=== PATIENT | male | born 1930 | race Caucasian/White ===

== ENCOUNTER 2017-09-03 18:48 | Inpatient (IN) ==
--- NOTE | 2017-09-03 19:53 | Emergency Department Note ---
Disposition Clinical Impression: Acute kidney injury, Elevated troponin Congestive heart failure Qualifiers: Congestive heart failure type: unspecified congestive heart failure type Congestive heart failure chronicity: unspecified congestive heart failure chronicity Qualified Code(s): I50.9 - Heart failure, unspecified Disposition: Admitted As Inpatient Condition: Fair Referrals: Julio Ma MD [Primary Care Provider] - Forms: ED Satisfaction Letter Time of Disposition: 21:14 General Adult HPI - General Chief complaint: ED Extremity Problem,Nontraumatic Stated complaint: BLE Edema Time Seen by Provider: 09/03/17 19:25 Source: patient, EMS Mode of arrival: ambulatory Limitations: no limitations Nursing Notes Reviewed: Yes Vital Signs Reviewed: Yes - History of Present Illness HPI Narrative: 86-year-old male with a history of congestive heart failure presents for evaluation of worsening dyspnea. Symptom onset spent over the past 2 days. Patient does have a history of congestive heart failure. Patient notes increasing weight gain over the past 2 days. States he has gained approximate 7 pounds. Noted worsening bilateral lower extremity edema. Patient also notes worsening dyspnea with exertion. Patient's on home oxygen of 2 L. Patient also uses CPAP at home. Patient's on Lasix 120 mg daily as well as Coreg. Patient denies any changes to those medications. Patient denies chest pain. Patient denies nausea or vomiting. No abdominal pain. Patient denies fevers or cough. Patient's been resting in a recliner. Patient cannot tolerate lying flat. Patient states that he has not drank excessively for the past few days. Patient does note that he has had an outpatient thoracentesis performed a couple weeks ago. Pain Scale: 0 - Related Data Home Medications Medication Instructions Recorded Confirmed Allopurinol [Zyloprim 300 MG] 300 mg PO DAILY 01/21/16 09/03/17 Aspirin 81 mg PO DAILY 01/21/16 09/03/17 Furosemide [Lasix] 40 mg PO TID 01/21/16 09/03/17 Insulin Glargine [Lantus] 0 - 10 units SQ HS 01/21/16 09/03/17 Warfarin [Coumadin] 5 mg PO MOWEFR 01/21/16 09/03/17 cloNIDine HCl [CloNIDine HCl] 0.1 mg PO BID PRN 01/21/16 09/03/17 Carvedilol [Coreg] 6.25 mg PO BID 08/19/17 09/03/17 Simvastatin [Zocor] 20 mg PO HS 08/19/17 09/03/17 Insulin LISPRO [Humalog Kwikpen 0 unit SQ TIDAC PRN 09/03/17 09/03/17 U-100] Lisinopril [Zestril] 40 mg PO DAILY 09/03/17 09/03/17 Oxygen 2.5 l NS AD 09/03/17 09/03/17 Warfarin [Coumadin] 2.5 mg PO SUTUTHSA 09/03/17 09/03/17 Allergies Allergy/AdvReac Type Severity Reaction Status Date / Time metoprolol [From Toprol XL] Allergy Difficulty Verified 08/19/17 12:50 Breathing morphine Allergy Difficulty Verified 08/19/17 12:50 Breathing All systems ED: reviewed and negative except as stated. Constitutional: Reports: as per HPI. Denies: fever Eyes: Reports: as per HPI ENT ED: Reports: as per HPI Cardiovascular: Reports: as per HPI. Denies: chest pain Respiratory: Reports: as per HPI, dyspnea. Denies: cough Gastrointestinal: Reports: as per HPI. Denies: nausea, vomiting Genitourinary: Reports: as per HPI Musculoskeletal: Reports: as per HPI Integumentary: Reports: as per HPI Neurological: Reports: as per HPI Psychiatric: Reports: as per HPI Endocrine: Reports: as per HPI Hematological/Lymphatic: Reports: as per HPI Past Medical History - Past Medical History Medical history: Reports: arthritis, atrial fibrillation, CHF, diabetes, hyperlipidemia, hypertension, kidney stones, renal disease Surgical history: Reports: orthopedic, other Psychiatric history: Reports: no psych history - Social History Smoking Status: Never smoker Smokeless Tobacco Status: No Alcohol use: Reports: none Drug use: Reports: none Physical Exam - General Limitations: no limitations General appearance: alert, in no apparent distress - Head Head exam: atraumatic, normocephalic, normal inspection - Eye Eye exam: Present: normal appearance, EOMI - ENT ENT exam: normal exam, mucous membranes moist - Neck Neck exam: Present: normal inspection - Respiratory Respiratory exam: Present: other (Diminished in the right lower lung field). Absent: respiratory distress - Cardiovascular Cardiovascular exam: Present: regular rate, irregular rhythm - Abdominal Exam Abdominal exam: Present: soft, Non-Tender, distention. Absent: tenderness, guarding, rebound - Extremities Exam Extremities exam: Present: normal inspection, pedal edema (2-3+ bilateral pitting edema with chronic vascular skin changes with some weeping and dressing applied.) - Back Exam Back exam: Present: normal inspection - Neurological Exam Neurological exam: Present: alert, oriented X3 - Skin Skin exam: Present: warm, dry, intact, normal color Course Course Narrative: Patient seen and examined upon arrival. Patient complaining of bilateral lower extremity edema. Patient had an echo performed over a year ago with EF of 50-55 %. Patient's complains of worsening dyspnea. Patient will get baseline labs, EKG, chest x-ray. Patient will also receive IV Lasix for diuresis. Patient will likely require admission for gradual diuresis and echo for heart function. - Reevaluation(s) Reevaluation #1: Patient is resting comfortably. No acute distress. Plan of care discussed with the patient. Patients responding to Lasix. Time: 21:14 Vital Signs Temperature 97.3 F L 09/03/17 18:48 Pulse Rate 85 09/03/17 18:48 Respiratory Rate 20 09/03/17 18:48 Blood Pressure 125/72 09/03/17 18:48 O2 Sat by Pulse Oximetry 93 09/03/17 18:48 Temperature 97.3 F L 09/03/17 18:48 Pulse Rate 94 09/03/17 20:35 Respiratory Rate 16 09/03/17 20:35 Blood Pressure 142/85 09/03/17 20:35 O2 Sat by Pulse Oximetry 97 09/03/17 20:35 Oxygen Delivery Oxygen Delivery Nasal Cannula Medical Decision Making - [facility] Narrative Medical decision making narrative: Patient presents with signs and symptoms of congestive heart failure. Patient did have an echo obtained over a year ago had an EF of 50 or 55%. Patient notes worsening dyspnea on exertion. Patient's orthopneic. Patient's on high- dose Lasix at home. Patient was given IV Lasix for diuresis in the emergency department. Patient complaint is his bilateral lower extremity edema. Does not appear to be cellulitis. Does appear to be weeping. Patient's labs reviewed show an elevated troponin. Patient has no STEMI EKG changes. Patient was given aspirin. Patient is currently denying chest pain. Patient's chest x- ray shows pulmonary edema. Patient has worsening kidney disease. Patient would benefit from inpatient admission and gradual diuresis given his kidney function worsening as well as elevated troponin. Patient will be admitted to hospital service for further evaluation monitoring. - Medical Records Medical records reviewed: Yes I reviewed the patient's medical records. - Lab Data Lab results reviewed: Yes I reviewed the patient's lab results. Result diagrams: 09/03/17 20:08 09/03/17 20:08 Lab Results 09/03/17 09/03/17 09/03/17 Range/Units 20:08 20:08 20:08 WBC 7.7 (4.3-11.1) K/mcL RBC 3.21 L (4.19-5.50) M/mcL Hgb 11.1 L (12.9-16.9) g/dL Hct 34.6 L (37.5-50.1) % MCV 107.8 H (83.0-100.0) fL MCH 34.6 H (28.0-33.3) pg MCHC 32.1 (31.6-35.5) g/dL RDW 17.6 H (11.5-14.5) % Plt Count 162 (140-400) K/mcL MPV 11.1 (9.4-12.4) fL Immature Gran % 0.7 (0-4) % Seg Neutrophils % 76.9 % Lymphocytes % 8.6 % Monocytes % 12.5 % Eosinophils % 0.9 % Basophils % 0.4 % Neutrophils # 5.9 (1.6-8.9) K/mcL Lymphocytes # 0.7 (0.6-4.6) K/mcL Monocytes # 1.0 (0.0-1.3) K/mcL Eosinophils # 0.1 (0.0-0.6) K/mcL Basophils # 0.0 (0.0-0.2) K/mcL PT (9.4-12.1) Seconds INR Sodium 134 L (136-145) mEq/L Potassium 4.4 (3.5-5.1) mEq/L Chloride 95 L (98-107) mEq/L Carbon Dioxide 31 H (23-29) mEq/L BUN 103 H (8-23) mg/dL Creatinine 3.73 H (0.70-1.30) mg/dL Est GFR ( Amer) 19 L (> 60) Est GFR (Non-Af Amer) 16 L (> 60) BUN/Creatinine Ratio 28 H (6-26) Glucose 281 H (70-105) mg/dL Calculated Osmolality 320 H (280-300) Calcium 9.7 (8.6-10.3) mg/dL Direct Bilirubin 0.3 H (0.0-0.2) mg/dL AST 27 (13-39) Units/L ALT 17 (7-52) Units/L Alkaline Phosphatase 289 H (34-104) Units/L Troponin I (< 0.04) ng/mL B-Natriuretic Peptide 531 H (Less than 100) pg/mL Serum Total Protein 6.3 L (6.4-8.9) g/dL Albumin 3.1 L (3.5-5.7) g/dL Globulin 3.2 (2.4-3.5) g/dL Albumin/Globulin Ratio 1.0 L (1.1-2.2) 09/03/17 09/03/17 Range/Units 20:08 20:08 WBC (4.3-11.1) K/mcL RBC (4.19-5.50) M/mcL Hgb (12.9-16.9) g/dL Hct (37.5-50.1) % MCV (83.0-100.0) fL MCH (28.0-33.3) pg MCHC (31.6-35.5) g/dL RDW (11.5-14.5) % Plt Count (140-400) K/mcL MPV (9.4-12.4) fL Immature Gran % (0-4) % Seg Neutrophils % % Lymphocytes % % Monocytes % % Eosinophils % % Basophils % % Neutrophils # (1.6-8.9) K/mcL Lymphocytes # (0.6-4.6) K/mcL Monocytes # (0.0-1.3) K/mcL Eosinophils # (0.0-0.6) K/mcL Basophils # (0.0-0.2) K/mcL PT 34.1 H (9.4-12.1) Seconds INR 3.1 Sodium (136-145) mEq/L Potassium (3.5-5.1) mEq/L Chloride (98-107) mEq/L Carbon Dioxide (23-29) mEq/L BUN (8-23) mg/dL Creatinine (0.70-1.30) mg/dL Est GFR ( Amer) (> 60) Est GFR (Non-Af Amer) (> 60) BUN/Creatinine Ratio (6-26) Glucose (70-105) mg/dL Calculated Osmolality (280-300) Calcium (8.6-10.3) mg/dL Direct Bilirubin (0.0-0.2) mg/dL AST (13-39) Units/L ALT (7-52) Units/L Alkaline Phosphatase (34-104) Units/L Troponin I 0.04 H* (< 0.04) ng/mL B-Natriuretic Peptide (Less than 100) pg/mL Serum Total Protein (6.4-8.9) g/dL Albumin (3.5-5.7) g/dL Globulin (2.4-3.5) g/dL Albumin/Globulin Ratio (1.1-2.2) - Radiology Data Radiology results reviewed: Yes I reviewed the patient's radiology results. Chest X-Ray 09/03/17 19:30 IMPRESSION: Findings most compatible with pulmonary edema. Correlate with any clinical evidence of superimposed pneumonia. D/ / Jonatan Vega MD / Jonatan Vega MD Interpreting Provider: Jonatan Vega MD - EKG Data EKG #1 EKG attestation: Yes I reviewed and interpreted this EKG. Rate: normal Rhythm: A.Fib [place]/QRS: left axis deviation, RBBB Q waves: II, III, aVF T wave inversions noted in: v1, v2, v3, v4 Interpretation: no acute changes, unchanged when compared to prior tracing (date ) (2015) Gely - Gely Situation: Demographics Background: Presenting Complaint Assessment: Vital Signs, Course and respsone to treatment, Patient/Family Expectation, Pertinant Lab Results Recommendation: Barrier(s) to disposition, Recommendation based on pending studies, treatments, or consults Gely Report Given to: Dr. Miguel Hong Repor Time: 21:07 Attestation Statement - Attestation Attestation: I, Keagan Jackson MD, personally evaluated this patient and discussed their management with the resident physician. I reviewed the resident's note and agree with the documented findings, medical decision making, and plan of care. 86-year-old male presents to the emergency department with a complaint of increased swelling of the lower extremities associated with some blisters and weeping over the past several days. He also has had some increased shortness of breath primarily with exertion. No significant chest pain. No cough or fever. On examination patient is a well-developed well-nourished elderly male in no acute distress. He is alert and oriented 3. There is no cyanosis or diaphoresis. Sounds are decreased bilaterally with some bibasilar rales. No wheezes noted. Heart is irregularly irregular with a normal rate. Abdomen soft and nontender with normal bowel sounds. 1+ pedal edema bilaterally. Chest x-ray shows pulmonary edema. Labs reviewed. Troponin 0.04. Creatinine 3.71. The hospitalist, Dr. Gregg, was consulted and accepted admission of the patient.
[2017-09-03] MEDS ORDERED: Furosemide 40 MG/4 ML VIAL IVP ONE (20:00)
[2017-09-03 20:18] LABS: Basophils % 0.4 %; Eosinophils # 0.1 K/mcL (0.0-0.6); Eosinophils % 0.9 %; Hematocrit 34.6 % (37.5-50.1); Hemoglobin 11.1 g/dL (12.9-16.9); Immature Granulocytes % 0.7 % (0-4); Lymphocytes # 0.7 K/mcL (0.6-4.6); Lymphocytes % 8.6 %; Mean Corpuscular HGB Conc 32.1 g/dL (31.6-35.5); Mean Corpuscular Hemoglobin 34.6 pg (28.0-33.3); Mean Corpuscular Volume 107.8 fL (83.0-100.0); Mean Platelet Volume 11.1 fL (9.4-12.4); Monocytes % 12.5 %; Neutrophils # 5.9 K/mcL (1.6-8.9); Platelet Count 162 K/mcL (140-400); Red Blood Count 3.21 M/mcL (4.19-5.50); Red Cell Distribution Width 17.6 % (11.5-14.5); Segmented Neutrophils % 76.9 %
[2017-09-03 20:29] LABS: INR 3.1; Prothrombin Time 34.1 Seconds (9.4-12.1)
[2017-09-03 20:34] LABS: Calcium 9.7 mg/dL (8.6-10.3); Potassium 4.4 mEq/L (3.5-5.1)
[2017-09-03] MEDS ORDERED: Aspirin 81 MG TAB.CHEW PO ONE (20:42)
[2017-09-03 20:53] LABS: Albumin 3.1 g/dL (3.5-5.7); Bilirubin,Direct 0.3 mg/dL (0.0-0.2)
[2017-09-03 20:59] LABS: Globulin 3.2 g/dL (2.4-3.5); Total Protein 6.3 g/dL (6.4-8.9)
[2017-09-03 22:22] LABS: Bilirubin,Indirect 0.4 mg/dL (0.0-1.2); Bilirubin,Total 0.7 mg/dL (0.3-1.0)
[2017-09-04] MEDS ORDERED: Naloxone 0.4 MG/ML INJ IVP PRN (01:32)
[2017-09-04] MEDS ORDERED: *HR* Dextrose 50 % in Water (Syg) 50 ML SYRINGE IVP PRN (01:32)
[2017-09-04] MEDS ORDERED: Ondansetron 4 MG/2 ML VIAL IVP PRN (01:32)
[2017-09-04] MEDS ORDERED: Dextrose Gel 15 GM/37.5 ML TUBE PO PRN ×2 (01:32)
[2017-09-04] MEDS ORDERED: D5% in Water 1,000 ML IVC PRN (01:32)
[2017-09-04] MEDS ORDERED: Acetaminophen 325 MG TABLET PO PRN (01:32)
[2017-09-04] MEDS ORDERED: cloNIDine HCl 0.1 MG TABLET PO PRN (01:41)
--- NOTE | 2017-09-04 01:46 | Internal Med History&Physical ---
Date of Encounter: 09/04/17 Time of Encounter: 01:44 Assessment and Plan (1) Diastolic heart failure Current visit: No Status: Acute Acute on chronic hypoxic respiratory failure secondary to bilateral pleural effusions mostly on the right due to diastolic acute CHF exacerbation with failed outpatient therapy Continue oxygen therapy Strict I's and O's and daily weight, switch to Bumex 1 mg 3 times a day IV Check echocardiogram Omeprazole for GI prophylaxis and Coumadin for DVT prophylaxis. The patient will be admitted as inpatient, expected to stay more than 2 midnights. Full code. Time spent on this admission 40 minutes. High risk due to acute respiratory failure Qualifiers: Heart failure chronicity: chronic Qualified Code(s): I50.32 - Chronic diastolic (congestive) heart failure (2) Recurrent pleural effusion on right Current visit: No Status: Acute Consider pulmonary consult to repeat thoracenteses if needed (3) Ascending aortic aneurysm Current visit: No Status: Acute (4) Acute kidney injury Current visit: Yes Status: Acute Acute on chronic renal failure History of chronic kidney disease stage IV Consider nephrology consult, the patient follows up with Dr. Navarrete (5) Elevated troponin Current visit: Yes Status: Acute Likely secondary to demand ischemia (6) Afib Current visit: No Status: Acute Continue Coumadin, hold Coumadin due to supratherapeutic INR Qualifiers: Atrial fibrillation type: chronic Qualified Code(s): I48.2 - Chronic atrial fibrillation (7) Diabetes Current visit: No Status: Acute Continue insulin Qualifiers: Diabetes mellitus type: type 2 Diabetes mellitus complication status: with kidney complications Diabetes mellitus complication detail: with chronic kidney disease Diabetes mellitus jail insulin use: with jail use Chronic kidney disease stage: stage 4 (severe) Qualified Code(s): E11.22 - Type 2 diabetes mellitus with diabetic chronic kidney disease Internal Medicine - H&P: HPI Chief complaint: Shortness of breath Admitted From: Emergency Dept History of present illness: Mr. Marin is a 86 year old male with a past medical history of diastolic CHF and a right pleural effusion that required thoracenteses back in August, interrelation on Coumadin, diabetes type 2 insulin-dependent, chronic kidney disease stage IV, chronic respiratory failure using 2 L at home. The patient came complaining of severe shortness of breath and lower extremity edema, he has gained 7 pounds despite being on Lasix 40 mg 3 times a day at home. Chest x -ray shows pulmonary edema and possible bilateral opacities more on the right than the left, no symptoms of pneumonia. Troponin 0.04 BNP is 531 glucose 281 his creatinine was 2.81 and has increased to 3.73. INR is 3.1 heart rate 94 blood pressure 142/85. The patient received a dose of Lasix IV at the emergency room. 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 Brand cyst, nephrolithiasis, hypertension) Psychiatric history: no psych history - Past Surgical History Surgical History: orthopedic, other, other (Thoracentesis in August 192016 removing 1250 mL from the right lung, lithotripsy, carpal tunnel syndrome surgery, TURP, cataracts, Mohs surgery due to BCC) - Social History Smoking Status: Never smoker Smokeless Tobacco Status: No Alcohol use: none Drug use: none - Family History Daughter Adopted: [place]: ashia Living Status: Still Living Father Name: Peterson Family Member Ethnicity: Non- Living Status: Age at : 86 Cause of : CHF Hx Family Cardiac Disorders: Yes - Additional Family History Additional family history: Brother with diabetes, daughter with breast cancer, father with CHF and mother with heart disease Internal Medicine - H&P: Meds Allopurinol [Zyloprim 300 MG] 300 mg PO DAILY 01/21/16 [History] Aspirin 81 mg PO DAILY 01/21/16 [History] Furosemide [Lasix] 40 mg PO TID 01/21/16 [History] Insulin Glargine [Lantus] 0 - 10 units SQ HS 01/21/16 [History] Warfarin [Coumadin] 5 mg PO MOWEFR 01/21/16 [History] cloNIDine HCl [CloNIDine HCl] 0.1 mg PO BID PRN 01/21/16 [History] Carvedilol [Coreg] 6.25 mg PO BID 08/19/17 [History] Simvastatin [Zocor] 20 mg PO HS 08/19/17 [History] Insulin LISPRO [Humalog Kwikpen U-100] 0 unit SQ TIDAC PRN 09/03/17 [History] Lisinopril [Zestril] 40 mg PO DAILY 09/03/17 [History] Oxygen 2.5 l NS AD 09/03/17 [History] Warfarin [Coumadin] 2.5 mg PO SUTUTHSA 09/03/17 [History] 3 Allergy/AdvReac Type Severity Reaction Status Date / Time metoprolol [From Toprol XL] Allergy Difficulty Verified 08/19/17 12:50 Breathing morphine Allergy Difficulty Verified 08/19/17 12:50 Breathing All Systems PM: A 10-system review of systems was performed and is negative for pertinent findings except as documented above in the HPI. Review of systems: Short of breath, denies any chest pain, other systems out of the 10 revealed were negative - Constitutional Vitals: Temp Pulse Resp BP Pulse Ox 97.8 F 89 16 116/76 98 09/03/17 22:46 09/03/17 22:46 09/03/17 22:46 09/03/17 22:46 09/03/17 22:46 General appearance: Present: A&O X 3 - Head Head exam: Present: atraumatic, normocephalic - Eye Eye exam: Present: PERRL, conjuntiva pink, sclera anicteric Pupils: Present: PERRL - Neck Neck exam general surgery: Present: supple, trachea midline. Absent: lymphadenopathy - Respiratory Respiratory exam: Present: CTAB. Absent: accessory muscle use, rales, rhonchi, wheezes Additional comments: Bilateral blunted breath sounds mostly on the right with mild diffuse crackles - Cardiovascular Cardiovascular exam: Present: RRR, +S1, +S2. Absent: diastolic murmur, gallop, rubs, systolic murmur - GI/Abdominal GI/Abdominal exam: Present: normal bowel sounds, soft, no peritoneal signs. Absent: distended, tenderness - Extremities Exam Extremities exam: Present: warm, radial pulses palpable and symmetrical. Absent : calf tenderness, cyanotic, pedal edema - Neurological Exam Neurological exam: Present: CN II-XII intact, oriented X3, no focal deficits. Absent: pronater drift, facial droop, speech deficit Additional comments: Severe bilateral 2+ pitting edema in both lower extremities: Chronic changes - Skin Skin exam: Present: dry, intact Internal Med - H&P Results - Labs CBC & Chem 7: 09/03/17 20:08 09/03/17 20:08
[2017-09-04] MEDS: Bumetanide 1 MG/4 ML VIAL IVP SCH ×2 (03:48→09:25)
[2017-09-04 05:18] LABS: INR 3.3; Prothrombin Time 36.4 Seconds (9.4-12.1)
[2017-09-04 05:29] LABS: Calcium 9.5 mg/dL (8.6-10.3); Potassium 4.3 mEq/L (3.5-5.1)
[2017-09-04] MEDS: Aspirin 81 MG TAB.CHEW PO SCH (09:24)
[2017-09-04] MEDS: Insulin LISPRO 300 UNITS/3 ML VIAL SQ SCH ×3 (09:24→18:57)
--- NOTE | 2017-09-04 09:50 | Internal Med Progress Note ---
<Girish Rainey - Last Filed: 09/04/17 13:12> Date of Encounter: 09/04/17 Time of Encounter: 09:47 - Assessment and plan (1) Diastolic heart failure Current Visit: Yes Status: Acute Assessment and plan: Acute diastolic CHF exacerbation Chest x-ray shows findings of pulmonary edema. With right pleural effusion. Bilateral lower extremity edema 3+. Lung exam: Bilateral basal crackles. BNP 531 Reports following a strict low sodium, fluid restricted diet. In the setting of a MARTIN on CKD Patient is on Lasix 40 mg by mouth 3 times a day at home. echo: 01/22/16: Left ventricular ejection fraction 55% with mild concentric left ventricular hypertrophy, severely dilated left atrium, moderately dilated right atrium, RVSP 68. plan: Reorder echocardiogram. Patient on Bumex 1 mg IV TID. Consult to nephrology and cardiology. Qualifiers: Heart failure chronicity: acute on chronic Qualified Code(s): I50.33 - Acute on chronic diastolic (congestive) heart failure (2) Black stool Current Visit: Yes Status: Acute Assessment and plan: reports black stool in past 2-3 days Current hemoglobin is 11.1 Baseline hemoglobin 13-14 Repeat CBC. Order fecal Hemoccult. Patient is supratherapeutic on his Coumadin with INR 3.3 Hemodynamically stable plan: Trend H&H. Consult GI if patient fecal hemoccult +. (3) [id number] kidney injury Current Visit: Yes Status: Acute Assessment and plan: MARTIN on CKD stage IV Scr trending down. 3.7<3.6 Etiology unclear. We will order urinalysis, uric acid, urine urea, retroperitoneal ultrasound. Patient follows [facility]. Nephrology consult placed. diabetic, fluid restricted diet, low salt diet. Qualifiers: Acute renal failure type: unspecified Chronic kidney disease stage: stage 4 (severe) Qualified Code(s): N17.9 - Acute kidney failure, unspecified; N18.4 - Chronic kidney disease, stage 4 (severe); N18.4 - Chronic kidney disease , stage 4 (severe); N18.4 - Chronic kidney disease, stage 4 (severe); N18.4 - Chronic kidney disease, stage 4 (severe) (4) Afib Current Visit: Yes Status: Acute Assessment and plan: Rate controlled. Continue metoprolol. INR supratherapeutic. Warfarin on hold. Qualifiers: Atrial fibrillation type: chronic Qualified Code(s): I48.2 - Chronic atrial fibrillation (5) OSWALDO on CPAP Current Visit: Yes Status: Acute Assessment and plan: We will order BiPAP overnight as patient has CHF exacerbation and will improve his symptoms. (6) Recurrent pleural effusion on right Current Visit: Yes Status: Acute Assessment and plan: Patient has had repeated right pleural effusions in the past. He has had 3 thoracentesis in the past. Last thoracentesis was 08/19/17. Previous fluid analysis showed a transudative etiology. Patient does have pulmonary hypertension according to his previous echocardiogram. That combined with CHF explain recurrent pleural effusion. Last thoracentesis was 08/19/2017. Chest x-ray shows reaccumulation of right pleural effusion. (7) Ascending aortic aneurysm Current Visit: Yes Status: Acute Assessment and plan: previous CT in 2015 showed size to be 41mm patient getting repeat echo. may need repeat imaging to asses size. - Subjective Interval history: Patient is very dyspneic this morning. He has conversational dyspnea. He denies chest pain. Patient gets short of breath from transferring to commode. 2 weeks ago he states he was able to ambulate with minimal difficulty or shortness of breath. in the last week he has gained 10 pounds of fluid. Also reports she has had multiple boils on his lower extremities that have been weeping. Denies chest pain, palpitations, nausea, vomiting, diarrhea. Reports lower extremity swelling. Reports black tarry stools for the past 2-3 days. Patient is on warfarin for atrial fibrillation. - Constitutional Vitals: Temp Pulse Resp BP Pulse Ox 97.9 F 93 17 129/64 91 09/04/17 09:02 09/04/17 09:02 09/04/17 09:02 09/04/17 09:02 09/04/17 09:02 General appearance: Present: A&O X 3 - Other Additional findings: General: mild distress HEENT: Head atraumatic, normocephalic, EOMI, PERRL, neck nontender to palpation , absent lymphadenopathy, Moist Mucous Membranes, Heart: Irregularly irregular Lungs: Menest, bilateral basilar crackles. Abdomen: Soft nontender, nondistended positive bowel sounds Skin: Multiple open boils on bilateral lower extremities. Large open boil on the left lower extremity measuring 4 cm x 4 cm with a serosanguineous discharge. Absent erythema, warmth, pus like discharge. Extremities: Bilateral 2+ pedal edema. Neuro: Alert and oriented 3 Vascular: Pedal and radial pulses 2 out of 4 Internal Medicine: Result - Labs CBC & Chem 7: 09/04/17 04:35 09/04/17 04:35 Labs: BMP 09/04/17 04:35 Sodium 135 L Potassium 4.3 Chloride 96 L Carbon Dioxide 30 H BUN 102 H Creatinine 3.60 H Glucose 223 H Calcium 9.5 Cardiac Enzymes 09/04/17 Range/Units 04:35 Troponin I 0.05 H* (< 0.04) ng/mL - ABG Interpretation ABG results: PT/INR, D-dimer PT 36.4 Seconds (9.4-12.1) H 09/04/17 04:35 Consult Discharge Plan - Plan Referrals: Julio Ma MD [Primary Care Provider] - (web request sent on 09/04/17) <Katherine Dobbins - Last Filed: 09/04/17 14:57> Date of Encounter: 09/04/17 - Constitutional Vitals: Temp Pulse Resp BP Pulse Ox 98.4 F 82 16 113/71 93 09/04/17 12:12 09/04/17 12:12 09/04/17 12:12 09/04/17 12:12 09/04/17 12:12 Internal Medicine: Result - Labs CBC & Chem 7: 09/04/17 04:35 09/04/17 04:35 Labs: Short CBC 09/04/17 Range/Units 04:35 WBC 7.8 (4.3-11.1) K/mcL Hgb 10.8 L (12.9-16.9) g/dL Hct 34.5 L (37.5-50.1) % Plt Count 161 (140-400) K/mcL Neutrophils # 5.8 (1.6-8.9) K/mcL BMP 09/04/17 04:35 Sodium 135 L Potassium 4.3 Chloride 96 L Carbon Dioxide 30 H BUN 102 H Creatinine 3.60 H Glucose 223 H Calcium 9.5 Cardiac Enzymes 09/04/17 Range/Units 04:35 Troponin I 0.05 H* (< 0.04) ng/mL - ABG Interpretation ABG results: PT/INR, D-dimer PT 36.4 Seconds (9.4-12.1) H 09/04/17 04:35 - Attending Attestation I saw and evaluated the patient at bedside. I have reviewed the progress note obtained and documented by the resident and personally participated in the murry components. I have discussed the case and management of the patient's care. I agree with the findings and plan of care.The following comments revise or confirm relevant murry components of their note. This is an 86-year-old male with a past medical history of diastolic heart failure who presents with- acute on chronic renal failure-with oliguria potential upper G.I. bleed as manifested by dark stools-to obtain occult blood fluid overload and acute exacerbation of chronic diastolic heart failure patient also had 3 days of significant Rigors prior to admission and subjective fevers-will monitor for infectious source. Does not appear to be septic. Obtain cardiology and nephrology consultations check renal ultrasound and urine with microscopy.
[2017-09-04 10:14] LABS: Basophils # 0.1 K/mcL (0.0-0.2); Basophils % 0.8 %; Eosinophils # 0.1 K/mcL (0.0-0.6); Eosinophils % 1.5 %; Hematocrit 34.5 % (37.5-50.1); Hemoglobin 10.8 g/dL (12.9-16.9); Immature Granulocytes % 0.8 % (0-4); Lymphocytes # 0.7 K/mcL (0.6-4.6); Lymphocytes % 8.6 %; Mean Corpuscular HGB Conc 31.3 g/dL (31.6-35.5); Mean Corpuscular Hemoglobin 34.2 pg (28.0-33.3); Mean Corpuscular Volume 109.2 fL (83.0-100.0); Mean Platelet Volume 11.6 fL (9.4-12.4); Monocytes # 1.1 K/mcL (0.0-1.3); Monocytes % 13.7 %; Neutrophils # 5.8 K/mcL (1.6-8.9); Nucleated Red Blood Cells 0.3 /100 WBC (0); Platelet Count 161 K/mcL (140-400); Red Blood Count 3.16 M/mcL (4.19-5.50); Red Cell Distribution Width 17.6 % (11.5-14.5); Segmented Neutrophils % 74.6 %
--- NOTE | 2017-09-04 15:11 | Cardiology Consult Note ---
Date of Encounter: 09/04/17 Time of Encounter: 14:00 Assessment and Plan (1) Congestive heart failure Current Visit: Yes Status: Acute Per cardiology: -Acute on chronic diastolic CHF. -Volume overloaded on exam. -Reports weight gain of 7 pounds at home. -On bumex 1mg IV TID. -Chest x-ray with pulmonary edema noted. -BNP 531. -Of note, MARTIN on CKD with creatinine 3.73 on admission. Poor urine output. Nephrology consulted. -Continue diuresis. Appreciate nephrology recommendations. -Strict i/os, daily weights, fluid restriction. Qualifiers: Congestive heart failure type: diastolic Congestive heart failure chronicity: acute on chronic Qualified Code(s): I50.33 - Acute on chronic diastolic (congestive) heart failure (2) Acute kidney injury Current Visit: Yes Status: Acute Per cardiology: -MARTIN on CKD. -Creatinine on admission 3.73, today 3.6. -Nephrology consulted. -Appreciate nephrology recommendations. (3) Elevated troponin Current Visit: Yes Status: Acute Per cardiology: -Troponins 0.04, 0.05. Troponins flat and adynamic in the setting of CHF, MARTIN. -Denies chest pain. -ECG with no acute ischemic changes. -TTE pending. -12/2015 TTE with LVEF 55%, no segmental wall motion abnormalities. -2012 stress negative. -On asa, statin, beta jenni. INR supratherapeutic on admisison. -Do not suspect NSTEMI, suspect demand ischemia related to above. NO cardiac rehab warranted at this time. -Further recommednations pending TTE. (4) Black stool Current Visit: Yes Status: Acute Per cardiology: -Patient reported black stool. -Management per primary service. (5) Afib Current Visit: Yes Status: Chronic Per cardiology: -Known atrial fibrillation. -Rate controlled on beta jenni. -ON coumadin. Of note, patient did report black stool. Stool OB pending. -Continue to monitor telemetry. Qualifiers: Atrial fibrillation type: chronic Qualified Code(s): I48.2 - Chronic atrial fibrillation Discussion w patient/family: The assessment and plan as outlined above was discussed with the patient and/or family members who expressed understanding and agreement. All questions were answered. Thank you for involving us in the care of your patient. Please call with any questions. Discussed and reviewed with . History of Present Illness Consult date: 09/04/17 Requesting physician: Girish Rainey Consult reason: CHF Chief complaint: weight gain, shortness of breath History of present illness: Mr. Marin is a 86 year old male with a relevant past medical history of CKD, [place], DM, HTN, hyperlipidemia, a.fib on coumadin, CHF, recent thoracentesis. Patient presented to [facility] with complaints of increased shortness of breath and weight gain at home. Patient has known history of CHF and weighs himself daily, patient reports he has gained 7 pounds in 3 days. Patient also reports increased peripheral edema and increased abdominal girth. Patient denies chest pain. Past Med Surg Social Fam HX - Past Medical History Attestation: Yes The following information was validated with the patient. 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 Brand cyst, nephrolithiasis, hypertension) Psychiatric history: no psych history - Past Surgical History Surgical History: orthopedic, other, other (Thoracentesis in August 192016 removing 1250 mL from the right lung, lithotripsy, carpal tunnel syndrome surgery, TURP, cataracts, Mohs surgery due to BCC) - Social History Smoking Status: Never smoker Smokeless Tobacco Status: No Alcohol use: none Drug use: none - Family History Daughter Adopted: [place]: ashia Living Status: Still Living Father Name: Peterson Family Member Ethnicity: Non- Living Status: Age at : 86 Cause of : CHF Hx Family Cardiac Disorders: Yes Medications and Allergies Allopurinol [Zyloprim 300 MG] 300 mg PO DAILY 01/21/16 [History] Aspirin 81 mg PO DAILY 01/21/16 [History] Furosemide [Lasix] 40 mg PO TID 01/21/16 [History] Insulin Glargine [Lantus] 0 - 10 units SQ HS 01/21/16 [History] Warfarin [Coumadin] 5 mg PO MOWEFR 01/21/16 [History] cloNIDine HCl [CloNIDine HCl] 0.1 mg PO BID PRN 01/21/16 [History] Carvedilol [Coreg] 6.25 mg PO BID 08/19/17 [History] Simvastatin [Zocor] 20 mg PO HS 08/19/17 [History] Insulin LISPRO [Humalog Kwikpen U-100] 0 unit SQ TIDAC PRN 09/03/17 [History] Lisinopril [Zestril] 40 mg PO DAILY 09/03/17 [History] Oxygen 2.5 l NS AD 09/03/17 [History] Warfarin [Coumadin] 2.5 mg PO SUTUTHSA 09/03/17 [History] 3 Allergy/AdvReac Type Severity Reaction Status Date / Time metoprolol [From Toprol XL] Allergy Difficulty Verified 08/19/17 12:50 Breathing morphine Allergy Difficulty Verified 08/19/17 12:50 Breathing All Systems Review: A 10-system review of systems was performed and is negative for pertinent findings except as documented above in the HPI. - Constitutional Constitutional: weight gain - Cardiovascular Cardiovascular: as per HPI, dyspnea at rest, dyspnea on exertion Physical Examination Vital Signs, Last 4 Hours Temp Pulse Resp BP Pulse Ox 09/04/17 12:12 98.4 F 82 16 113/71 93 General: Conversant, No Apparent Distress HEENT: Atraumatic, Normocephaly, Mucus Membranes Moist Neck: No JVD, Normal carotid pulses Cardiac: Normal S1 and S2, No Murmur, Other (Irregularly irregular) Lungs: Other (Lung sounds diminished throughout) Neuro: Alert and responsive, No focal deficits noted Abdomen: Soft, Non-Tender Skin: No rashes noted on visualized skin Musculoskeletal: No Chest Wall Tenderness Extremities: No Clubbing, No Cyanosis, Normal Pulses, Other (3+ bilateral lower extremity pitting edema noted. ) Results 09/04/17 04:35 09/04/17 04:35 Lab Results Impressions Chest X-Ray 09/03/17 19:30 IMPRESSION: Findings most compatible with pulmonary edema. Correlate with any clinical evidence of superimposed pneumonia. D/ / Jonatan eVga MD / Jonatan Vega MD Interpreting Provider: Jonatan Vega MD Active Medications Acetaminophen (Tylenol) 650 mg PO Q6HR PRN PRN Reason: Mild Pain (1-3) Stop: 03/06/18 01:33 Aspirin (Aspirin) 81 mg PO DAILY [facility] Stop: 03/06/18 09:01 Last Admin: 09/04/17 09:24 Dose: 81 mg Bumetanide (Bumex) 1 mg IVP TIDDIURETIC [facility] Stop: 03/06/18 17:01 Carvedilol (Coreg) 6.25 mg PO BIDWM [facility] PRN Reason: Protocol Stop: 03/06/18 08:01 Last Admin: 09/04/17 09:24 Dose: 6.25 mg Clonidine HCl (Clonidine Hcl) 0.1 mg PO BID PRN PRN Reason: Blood Pressure > 150/90 Stop: 03/06/18 01:42 Dextrose/Water (Dextrose 50% (Syg)) 25 ml IVP AD PRN PRN Reason: Hypoglycemia Stop: 03/06/18 01:33 Glucagon (Glucagen) 1 mg IM ONCE PRN PRN Reason: Hypoglycemia Stop: 03/06/18 01:33 Glucose (Gluctose) 15 gm PO ONCE PRN PRN Reason: Hypoglycemia Stop: 03/06/18 01:33 Glucose (Gluctose) 30 gm PO ONCE PRN PRN Reason: Hypoglycemia Stop: 03/06/18 01:33 Dextrose (Dextrose 5%) 1,000 mls @ 100 mls/hr IVC .Q10H PRN PRN Reason: HYPOGLYCEMIA Stop: 03/06/18 01:33 Insulin Detemir (Levemir) 4 unit SQ HS [facility] Stop: 03/06/18 21:01 Insulin Human Lispro (Humalog) 0 units SQ TIDAC [facility] PRN Reason: Protocol Stop: 03/06/18 07:31 Last Admin: 09/04/17 13:44 Dose: 10 units Insulin Human Lispro (Humalog) 0 units SQ HS [facility] PRN Reason: Protocol Stop: 03/06/18 21:01 Naloxone HCl (Narcan) 0.4 mg IVP Q2MIN PRN PRN Reason: Opioid Reversal Stop: 03/06/18 01:33 Ondansetron HCl (Zofran) 4 mg IVP Q8HR PRN PRN Reason: Nausea And Vomiting Stop: 03/06/18 01:33 Simvastatin (Zocor) 20 mg PO HS [facility] PRN Reason: Protocol Stop: 03/06/18 21:01 Laboratory Tests 04/11/17 06/13/17 06/20/17 09:08 10:13 10:33 Hgb INR Creatinine 2.74 H 2.43 H 2.81 H Troponin I B-Natriuretic Peptide 09/03/17 09/03/17 09/03/17 20:08 20:08 20:08 Hgb INR Creatinine 3.73 H Troponin I 0.04 H* B-Natriuretic Peptide 531 H 09/04/17 09/04/17 09/04/17 04:35 04:35 04:35 Hgb INR 3.3 Creatinine 3.60 H Troponin I 0.05 H* B-Natriuretic Peptide 09/04/17 04:35 Hgb 10.8 L INR Creatinine Troponin I B-Natriuretic Peptide - Imaging and Cardiology Chest Xray: report reviewed Echo: pending, report reviewed - EKG Interpretation EKG results cardiology: personally reviewed (ECG with atrial fibrillation, RBBB , HR 87.), other (Telemetry reviewed with average HR previous 12 hours noted to be 91, atrial fibrillation. PVCs noted.) Consult Discharge Plan - Plan Referrals: Julio Ma MD [Primary Care Provider] - (web request sent on 09/04/17)
--- NOTE | 2017-09-04 16:36 | Nephrology Consult Note ---
Date of Encounter: 09/04/17 Time of Encounter: 16:33 Assessment and Plan (1) Acute kidney injury Current Visit: Yes Status: Acute Acute kidney injury on chronic kidney disease stage IV. Likely due to acute exacerbation of congestive heart failure. Patient has significant lower extremity edema with weight gain. He continued to take his home Lasix dose to 40 mg 3 times a day without relief of symptoms. Review of the patient's record reveals that he has had significant proteinuria for some time. Did have SPEP/ UPEP in the past that was negative for monoclonal proteins. Will recheck protein creatinine ratio at this admission. Nephrotic range proteinuria with acute renal failure is likely due to underlying diabetes. Patient has been transitioned to Lasix drip by cardiology. We will continue to closely monitor his renal function, no indication for urgent renal replacement therapy at this time however patient may progress to needing hemodialysis depending on his clinical course. Retroperitoneal ultrasound is pending which is appropriate given that the patient has had decreased urine output. Agree with holding DINESH inhibitor. Hyponatremia: Mild, asymptomatic. Likely hypervolemic hyponatremia in the setting of acute exacerbation of heart failure. Slightly improved today. Continue to monitor. Continue to follow renal protective strategy by avoiding nephrotoxins and dosing medications based on GFR. Thank you for consulting the [facility] we will continue to follow with you. (2) Chronic kidney disease Current Visit: Yes Status: Acute As above. Qualifiers: Chronic kidney disease stage: stage 4 (severe) Qualified Code(s): N18.4 - Chronic kidney disease, stage 4 (severe) (3) Proteinuria Current Visit: Yes Status: Acute As above Qualifiers: Proteinuria type: persistent Qualified Code(s): R80.1 - Persistent proteinuria, unspecified (4) Diastolic heart failure Current Visit: Yes Status: Acute Management per primary/cardia Qualifiers: Heart failure chronicity: acute on chronic Qualified Code(s): I50.33 - Acute on chronic diastolic (congestive) heart failure (5) OSWALDO on CPAP Current Visit: Yes Status: Acute Management per primary (6) Recurrent pleural effusion on right Current Visit: Yes Status: Acute Management per primary (7) Afib Current Visit: Yes Status: Chronic Management per primary/cardio Qualifiers: Atrial fibrillation type: chronic Qualified Code(s): I48.2 - Chronic atrial fibrillation History of Present Illness - Reason for Consult Consult date: 01/04/18 Acute Kidney Injury, Chronic Kidney Disease Requesting physician: Girish Rainey - Chief Complaint Edema - History of Present Illness Patient is an 86-year-old male with history of CKD stage IV with significant proteinuria, heart failure, diabetes, hypertension who presents with weight gain and increased lower extremity edema. Patient states that he weighs himself daily and over the last 3 days he has experienced a 7 pound weight gain. He also reports decreased oral intake, weakness, and dyspnea on exertion. He reports nausea and decreased appetite as well as decreased urinary output. He has had to use his oxygen more frequently. He denies chest pain, fever, chills, abdominal pain. 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 Brand cyst, nephrolithiasis, hypertension) Psychiatric history: no psych history - Past Surgical History Surgical History: orthopedic, other, other (Thoracentesis in August 192016 removing 1250 mL from the right lung, lithotripsy, carpal tunnel syndrome surgery, TURP, cataracts, Mohs surgery due to BCC) - Social History Smoking Status: Never smoker Smokeless Tobacco Status: No Alcohol use: none Drug use: none - Family History Daughter Adopted: [place]: ashia Living Status: Still Living Father Name: Peterson Family Member Ethnicity: Non- Living Status: Age at : 86 Cause of : CHF Hx Family Cardiac Disorders: Yes Medications and Allergies Allopurinol [Zyloprim 300 MG] 300 mg PO DAILY 01/21/16 [History] Aspirin 81 mg PO DAILY 01/21/16 [History] Furosemide [Lasix] 40 mg PO TID 01/21/16 [History] Insulin Glargine [Lantus] 0 - 10 units SQ HS 01/21/16 [History] Warfarin [Coumadin] 5 mg PO MOWEFR 01/21/16 [History] cloNIDine HCl [CloNIDine HCl] 0.1 mg PO BID PRN 01/21/16 [History] Carvedilol [Coreg] 6.25 mg PO BID 08/19/17 [History] Simvastatin [Zocor] 20 mg PO HS 08/19/17 [History] Insulin LISPRO [Humalog Kwikpen U-100] 0 unit SQ TIDAC PRN 09/03/17 [History] Lisinopril [Zestril] 40 mg PO DAILY 09/03/17 [History] Oxygen 2.5 l NS AD 09/03/17 [History] Warfarin [Coumadin] 2.5 mg PO SUTUTHSA 09/03/17 [History] 3 Allergy/AdvReac Type Severity Reaction Status Date / Time metoprolol [From Toprol XL] Allergy Difficulty Verified 08/19/17 12:50 Breathing morphine Allergy Difficulty Verified 08/19/17 12:50 Breathing Review of Systems All Systems: reviewed and no additional remarkable complaints except as stated Exam - Vital Signs Vital signs: Initial Vital Signs Temp Pulse Resp BP Pulse Ox 97.3 F L 85 20 125/72 93 09/03/17 18:48 09/03/17 18:48 09/03/17 18:48 09/03/17 18:48 09/03/17 18:48 Vital Signs - Last 8 Hours Temp Pulse Resp BP Pulse Ox 09/04/17 16:05 98.5 F 90 16 110/66 97 09/04/17 12:12 98.4 F 82 16 113/71 93 09/04/17 09:02 97.9 F 93 17 129/64 91 Intake and Output 09/04/17 09/04/17 09/04/17 07:59 15:59 23:59 Intake Total 420 / 420 Output Total 100 / 100 50 / 50 Balance -100 / -100 420 / 420 -50 / -50 Intake: Oral 420 / 420 Output: Urine 100 / 100 50 / 50 Other: Meal Lunch Percent of Meal Consumed 90% Weight 96 kg Blood Glucose* 316 212 Patient Weight 09/04/17 23:59 Weight 96 kg - General Appearance General appearance: well-developed, appears started age EENT: ATNC, mucous membranes moist Neck: supple Additional Comments: Diminished breath sounds in bases bilaterally Cardiology: holosystolic murmur (2 out of 6), edema (3+ lower extremity edema), regular rate, irregular rhythm Gastrointestinal: hypoactive bowel sounds, no tenderness, no guarding, no organomegaly, distended (Mild) Integumentary: ulcer, hyperpigmentation, chronic venous stasis Neurologic: no focal deficit, alert and oriented x3 Musculoskeletal: no erythema, no cyanosis, no clubbing Results - Lab Results 09/04/17 04:35 09/04/17 04:35 Most recent lab results Calcium 9.5 mg/dL (8.6-10.3) 09/04/17 04:35 Consult Discharge Plan - Plan Referrals: Julio Ma MD [Primary Care Provider] - (web request sent on 09/04/17)
[2017-09-04] MEDS ORDERED: Bumetanide 1 MG/4 ML VIAL IVP SCH ×2 (17:00)
[2017-09-04] MEDS ORDERED: Warfarin perPT PO PRN (18:00)
[2017-09-04 18:44] LABS: Hematocrit 32.9 % (37.5-50.1); Hemoglobin 10.5 g/dL (12.9-16.9)
[2017-09-04] MEDS: Furosemide 240 MG in D5% in Water 96 ML IVC SCH (18:49)
[2017-09-04 19:43] LABS: Uric Acid 6.4 mg/dL (2.3-7.6)
[2017-09-04] MEDS ORDERED: INSULIN GLARGINE 4 UNIT SQ SCH (21:00)
[2017-09-04] MEDS ORDERED: Insulin DETEMIR 100 UNIT/ML X5UNITS SQ SCH (21:00)
[2017-09-05 00:34] LABS: Basophils % 0.4 %; Eosinophils # 0.1 K/mcL (0.0-0.6); Eosinophils % 0.9 %; Hematocrit 32.9 % (37.5-50.1); Hematocrit 33.3 % (37.5-50.1); Hemoglobin 10.5 g/dL (12.9-16.9); Immature Granulocytes % 1.2 % (0-4); Lymphocytes # 0.8 K/mcL (0.6-4.6); Lymphocytes % 7.9 %; Mean Corpuscular HGB Conc 31.9 g/dL (31.6-35.5); Mean Corpuscular Hemoglobin 34.1 pg (28.0-33.3); Mean Corpuscular Volume 106.8 fL (83.0-100.0); Mean Platelet Volume 10.8 fL (9.4-12.4); Monocytes # 1.5 K/mcL (0.0-1.3); Neutrophils # 8.1 K/mcL (1.6-8.9); Platelet Count 161 K/mcL (140-400); Red Blood Count 3.08 M/mcL (4.19-5.50); Red Cell Distribution Width 17.3 % (11.5-14.5); Segmented Neutrophils % 75.6 %
[2017-09-05 00:45] LABS: INR 3.2; Prothrombin Time 35.1 Seconds (9.4-12.1)
[2017-09-05 00:51] LABS: Calcium 9.1 mg/dL (8.6-10.3); Magnesium 2.7 mg/dL (1.6-2.6); Phosphorous 4.2 mg/dL (2.7-4.5); Potassium 4.5 mEq/L (3.5-5.1)
[2017-09-05] MEDS: Insulin LISPRO 300 UNITS/3 ML VIAL SQ SCH ×5 (05:19→19:57)
[2017-09-05 06:50] LABS: Hematocrit 32.8 % (37.5-50.1); Hemoglobin 10.6 g/dL (12.9-16.9)
[2017-09-05] MEDS: Aspirin 81 MG TAB.CHEW PO SCH (08:17)
--- NOTE | 2017-09-05 09:01 | Internal Med Progress Note ---
<Girish Rainey - Last Filed: 09/05/17 13:40> Date of Encounter: 09/05/17 Time of Encounter: 08:58 - Assessment and plan (1) Diastolic heart failure Current Visit: Yes Status: Acute Assessment and plan: Patient has bilateral lower extremity swelling and scrotal swelling. Has not showed any clinical improvement from yesterday. Cardiology has started a Lasix drip on patient. Unable to record accurate I's and O's because of significant scrotal swelling. Unable to insert Garcia catheter. We will consult urology. Renal function stable. Oxygen requirements increased to 4.5L Echocardiogram shows EF of 50-55%. Severe pulmonary hypertension with RVSP of 90. 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 shows renal parenchymal disease Uric acid within normal limits. Urine studies are collected. Patient has significant scrotal swelling unable to insert Garcia catheter. Attempted twice last night. Consult urology. I/Os not accurate. If volume overload does not improve may need dialysis. Appreciate nephrology input. diabetic, fluid restricted diet, low salt diet. Qualifiers: Acute renal failure type: unspecified Chronic kidney disease stage: stage 4 (severe) Qualified Code(s): N17.9 - Acute kidney failure, unspecified; N18.4 - Chronic kidney disease, stage 4 (severe); N18.4 - Chronic kidney disease , stage 4 (severe); N18.4 - Chronic kidney disease, stage 4 (severe); N18.4 - Chronic kidney disease, stage 4 (severe) (3) Black stool Current Visit: Yes Status: Acute Assessment and plan: Patient's hemoglobin is stable. Hemodynamically stable. Fecal Hemoccult not done yet. Continue trend hemoglobin. INR 3.2. (4) Afib Current Visit: Yes Status: Chronic Assessment and plan: Rate controlled. Continue metoprolol. INR supratherapeutic. Warfarin on hold. Qualifiers: Atrial fibrillation type: chronic Qualified Code(s): I48.2 - Chronic atrial fibrillation (5) OSWALDO on CPAP Current Visit: Yes Status: Acute Assessment and plan: We will order BiPAP overnight as patient has CHF exacerbation and will improve his symptoms. (6) Recurrent pleural effusion on right Current Visit: Yes Status: Acute Assessment and plan: Patient has had repeated right pleural effusions in the past. He has had 3 thoracentesis in the past. Last thoracentesis was 08/19/17. Previous fluid analysis showed a transudative etiology. Patient does have pulmonary hypertension according to his previous echocardiogram. That combined with CHF explain recurrent pleural effusion. Last thoracentesis was 08/19/2017. Chest x-ray shows reaccumulation of right pleural effusion. if fluid overload worsens, respiratory status worsens will need therapeutic right thoracentesis. (7) Ascending aortic aneurysm Current Visit: Yes Status: Acute Assessment and plan: previous CT in 2015 showed size to be 41mm echo shows normal sized aortic root. - Subjective Interval history: sob not improved. Feels fatigue and week. Garcia was not inserted due to significant scrotal edema (tried twice last night). Patient has diaper on. I/Os not accurate . Had BM last night but was not recorded. FOBT not done. Denies chest pain, abdominal pain, n/v. tolerating diet. - Constitutional Vitals: Temp Pulse Resp BP Pulse Ox 98.2 F 97 17 119/70 98 09/05/17 07:01 09/05/17 07:01 09/05/17 07:01 09/05/17 07:01 09/05/17 07:01 General appearance: Present: A&O X 3 - Other Additional findings: General: mild distress Heart: Irregularly irregular Lungs: diminished lung sounds, poor aeration along history of poor respiratory effort. Abdomen: Soft nontender, nondistended positive bowel sounds Skin: Multiple open boils on bilateral lower extremities. Large open boil on the left lower extremity measuring 4 cm x 4 cm with a serosanguineous discharge now dressed. Extremities: Bilateral 2+ pedal edema. : scrotal swelling, skin break down of the scrotum. No erythema, discharge. Neuro: Alert and oriented 3 Vascular: Pedal and radial pulses 2 out of 4 Internal Medicine: Result - Labs CBC & Chem 7: 09/05/17 12:54 09/05/17 00:18 Labs: Short CBC 09/04/17 09/04/17 09/05/17 Range/Units 04:35 18:35 00:18 WBC 7.8 10.7 (4.3-11.1) K/mcL Hgb 10.8 L 10.5 L 10.5 L (12.9-16.9) g/dL Hct 34.5 L 32.9 L 32.9 L (37.5-50.1) % Plt Count 161 161 (140-400) K/mcL Neutrophils # 5.8 8.1 (1.6-8.9) K/mcL 09/05/17 09/05/17 Range/Units 00:18 06:12 WBC (4.3-11.1) K/mcL Hgb 10.5 L 10.6 L (12.9-16.9) g/dL Hct 33.3 L 32.8 L (37.5-50.1) % Plt Count (140-400) K/mcL Neutrophils # (1.6-8.9) K/mcL BMP 09/04/17 09/05/17 04:35 00:18 Sodium 135 L 132 L Potassium 4.3 4.5 Chloride 96 L 96 L Carbon Dioxide 30 H 28 BUN 102 H 106 H Creatinine 3.60 H 3.60 H Glucose 223 H 175 H Calcium 9.5 9.1 - ABG Interpretation ABG results: PT/INR, D-dimer PT 35.1 Seconds (9.4-12.1) H 09/05/17 00:18 - Impressions Impressions Retroperitoneum Ultrasound 09/04/17 20:30 IMPRESSION: 1. Hyperechoic right renal parenchyma, suggesting underlying parenchymal disease. 2. Normal sonographic appearance of the right kidney. 3. Decompressed urinary bladder. D/ / Marcelino Avila MD / Marcelino Avila MD Interpreting Provider: Marcelino Avila MD Consult Discharge Plan - Plan Referrals: Julio Ma MD [Primary Care Provider] - (web request sent on 09/04/17) <Katherine Dobbins G - Last Filed: 09/05/17 15:26> Date of Encounter: 09/05/17 - Constitutional Vitals: Temp Pulse Resp BP Pulse Ox 98.3 F 88 18 117/73 99 09/05/17 11:05 09/05/17 11:05 09/05/17 11:05 09/05/17 11:05 09/05/17 11:05 Internal Medicine: Result - Labs CBC & Chem 7: 09/05/17 12:54 09/05/17 00:18 Labs: Short CBC 09/04/17 09/05/17 09/05/17 Range/Units 18:35 00:18 00:18 WBC 10.7 (4.3-11.1) K/mcL Hgb 10.5 L 10.5 L 10.5 L (12.9-16.9) g/dL Hct 32.9 L 32.9 L 33.3 L (37.5-50.1) % Plt Count 161 (140-400) K/mcL Neutrophils # 8.1 (1.6-8.9) K/mcL 09/05/17 09/05/17 Range/Units 06:12 12:54 WBC (4.3-11.1) K/mcL Hgb 10.6 L 9.7 L (12.9-16.9) g/dL Hct 32.8 L 31.1 L (37.5-50.1) % Plt Count (140-400) K/mcL Neutrophils # (1.6-8.9) K/mcL BMP 09/05/17 00:18 Sodium 132 L Potassium 4.5 Chloride 96 L Carbon Dioxide 28 BUN 106 H Creatinine 3.60 H Glucose 175 H Calcium 9.1 - ABG Interpretation ABG results: PT/INR, D-dimer PT 35.1 Seconds (9.4-12.1) H 09/05/17 00:18 - Impressions Impressions Retroperitoneum Ultrasound 09/04/17 20:30 IMPRESSION: 1. Hyperechoic right renal parenchyma, suggesting underlying parenchymal disease. 2. Normal sonographic appearance of the right kidney. 3. Decompressed urinary bladder. D/ / Marcelino Avila MD / Marcelino Avila MD Interpreting Provider: Marcelino Avila MD - Attending Attestation I saw and evaluated the patient at bedside. I have reviewed the progress note obtained and documented by the resident and personally participated in the murry components. I have discussed the case and management of the patient's care. I agree with the findings and plan of care.The following comments revise or confirm relevant murry components of their note. Acute and chronic exacerbation of diastolic heart failure acute on chronic renal failure appreciate cardiology and nephrology follow-up. Continue to closely monitor cardiovascular status. Strict Is and Os ordered urology consulted for Garcia catheter needs
--- NOTE | 2017-09-05 09:52 | Cardiology Progress Note ---
Date of Encounter: 09/05/17 Time of Encounter: 08:30 Assessment and Plan (1) Congestive heart failure Current Visit: Yes Status: Acute Per cardiology: -Acute on chronic diastolic CHF. -Volume overloaded on exam. -Reports weight gain of 7 pounds at home. -On lasix drip at 5mg/hour. -Chest x-ray with pulmonary edema noted. -BNP 531. -Of note, MARTIN on CKD with creatinine 3.73 on admission. Poor urine output. Nephrology consulted. -intake and output inaccurate due to incontinent of urine and unable to place koch catheter. Urology has been consulted to place koch. -Continue diuresis. Appreciate nephrology recommendations. -Strict i/os, daily weights, fluid restriction. Qualifiers: Congestive heart failure type: diastolic Congestive heart failure chronicity: acute on chronic Qualified Code(s): I50.33 - Acute on chronic diastolic (congestive) heart failure (2) Acute kidney injury Current Visit: Yes Status: Acute Per cardiology: -MARTIN on CKD. -Creatinine on admission 3.73, today 3.6. -Nephrology consulted. -Appreciate nephrology recommendations. (3) Elevated troponin Current Visit: Yes Status: Acute Per cardiology: -Troponins 0.04, 0.05. Troponins flat and adynamic in the setting of CHF, MARTIN. -Denies chest pain. -ECG with no acute ischemic changes. -TTE pending. -12/2015 TTE with LVEF 55%, no segmental wall motion abnormalities. -2012 stress negative. -On asa, statin, beta jenni. INR supratherapeutic on admisison. -Do not suspect NSTEMI, suspect demand ischemia related to above. NO cardiac rehab warranted at this time. -Further recommednations pending TTE. (4) Black stool Current Visit: Yes Status: Acute Per cardiology: -Patient reported black stool. -Hemoglobin today 10.6. -Occult blood pending. -Management per primary service. (5) Afib Current Visit: Yes Status: Chronic Per cardiology: -Known atrial fibrillation. -Rate controlled on beta jenni. -ON coumadin. Of note, patient did report black stool. Stool OB pending. -Continue to monitor telemetry. Qualifiers: Atrial fibrillation type: chronic Qualified Code(s): I48.2 - Chronic atrial fibrillation Discussion w patient/family: The assessment and plan as outlined above was discussed with the patient and/or family members who expressed understanding and agreement. All questions were answered. Thank you for involving us in the care of your patient. Please call with any questions. Discussed and reviewed with . Subjective Principal diagnosis: CHF, MARTIN Interval history: Patient states breathing is ok today. Patient states he just feels tired today. Objective Vital Signs, Last 4 Hours Temp Pulse Resp BP Pulse Ox 09/05/17 07:01 98.2 F 97 17 119/70 98 General: Conversant, No Apparent Distress HEENT: Atraumatic, Normocephaly, Mucus Membranes Moist Neck: No JVD, Normal carotid pulses Cardiac: Normal S1 and S2, No Murmur, Other (Irregularly irregular) Lungs: Other (Expiratory wheezes noted throughout) Neuro: Alert and responsive, No focal deficits noted Abdomen: Soft, Non-Tender Skin: No rashes noted on visualized skin Musculoskeletal: No Chest Wall Tenderness Extremities: No Clubbing, No Cyanosis, Normal Pulses, Other (2+ bilateral pitting pedal edema. ) Results 09/05/17 06:12 09/05/17 00:18 Lab Results Impressions Echocardiogram 09/04/17 01:42 Impressions: LVEF 50-55%. Normal LV chamber size and function. Mild concentric left ventricular hypertrophy. Atypical septal motion consistent with bundle branch block. Mildly dilated right ventricle. Mild right ventricular hypokinesis. Severely dilated left atrium. Severely dilated right atrium. Moderate tricuspid regurgitation. Mild mitral regurgitation. Severe pulmonary hypertension. Estimated RVSP is >90 mmHg. Left Ventricular Wall Motion: Rest Echo Findings All wall segments showed normal motion. Findings: Study Quality * Technically adequate exam. ECG Findings * Atrial fibrillation, bundle branch block. Left Ventricle * LVEF 50-55%. * Normal LV chamber size and function. * Mild concentric left ventricular hypertrophy. * Atypical septal motion consistent with bundle branch block. Right Ventricle * Mildly dilated right ventricle. * Mild right ventricular hypokinesis. Left Atrium * Severely dilated left atrium. Right Atrium * Severely dilated right atrium. Interatrial Septum * No evidence of PFO by color Doppler. Aortic Valve * Trileaflet aortic valve. * Mildly calcified aortic valve leaflets. * Trace aortic regurgitation. * No aortic stenosis. Mitral Valve * Mild mitral annular calcification. * Mild mitral regurgitation. * No mitral stenosis. Tricuspid Valve * Normal tricuspid valve structure. * Moderate tricuspid regurgitation. * Severe pulmonary hypertension. * Estimated RVSP is >90 mmHg. Pulmonic Valve * Normal pulmonic valve structure and function. * No pulmonic regurgitation. Aorta * Normally sized aortic root. Pericardium * The pericardium appears normal. IVC * The IVC is dilated. * < 50% respiratory change. Pulmonary Artery * Normal visualized portions of the main pulmonary artery. Retroperitoneum Ultrasound 09/04/17 20:30 IMPRESSION: 1. Hyperechoic right renal parenchyma, suggesting underlying parenchymal disease. 2. Normal sonographic appearance of the right kidney. 3. Decompressed urinary bladder. D/ / Marcelino Avila MD / Marcelino Avila MD Interpreting Provider: Marcelino Avila MD Active Medications Acetaminophen (Tylenol) 650 mg PO Q6HR PRN PRN Reason: Mild Pain (1-3) Stop: 03/06/18 01:33 Aspirin (Aspirin) 81 mg PO DAILY [facility] Stop: 03/06/18 09:01 Last Admin: 09/05/17 08:17 Dose: 81 mg Carvedilol (Coreg) 6.25 mg PO BIDWM DIPIKA PRN Reason: Protocol Stop: 03/06/18 08:01 Last Admin: 09/05/17 08:16 Dose: 6.25 mg Clonidine HCl (Clonidine Hcl) 0.1 mg PO BID PRN PRN Reason: Blood Pressure > 150/90 Stop: 03/06/18 01:42 Dextrose/Water (Dextrose 50% (Syg)) 25 ml IVP AD PRN PRN Reason: Hypoglycemia Stop: 03/06/18 01:33 Glucagon (Glucagen) 1 mg IM ONCE PRN PRN Reason: Hypoglycemia Stop: 03/06/18 01:33 Glucose (Gluctose) 15 gm PO ONCE PRN PRN Reason: Hypoglycemia Stop: 03/06/18 01:33 Glucose (Gluctose) 30 gm PO ONCE PRN PRN Reason: Hypoglycemia Stop: 03/06/18 01:33 Dextrose (Dextrose 5%) 1,000 mls @ 100 mls/hr IVC .Q10H PRN PRN Reason: HYPOGLYCEMIA Stop: 03/06/18 01:33 Furosemide 240 mg/ Dextrose 120 mls @ 2.5 mls/hr IVC .Q24H DIPIKA PRN Reason: 5 MG/HR Stop: 03/06/18 16:16 Last Admin: 09/04/17 18:49 Dose: 5 mg/hr, 2.5 mls/hr Insulin Detemir (Levemir) 4 unit SQ HS DIPIKA Stop: 03/06/18 21:01 Last Admin: 09/04/17 21:15 Dose: 4 unit Insulin Human Lispro (Humalog) 0 units SQ TIDAC DIPIKA PRN Reason: Protocol Stop: 03/06/18 07:31 Last Admin: 09/05/17 08:17 Dose: 4 units Insulin Human Lispro (Humalog) 0 units SQ HS DIPIKA PRN Reason: Protocol Stop: 03/06/18 21:01 Last Admin: 09/05/17 05:19 Dose: Not Given Naloxone HCl (Narcan) 0.4 mg IVP Q2MIN PRN PRN Reason: Opioid Reversal Stop: 03/06/18 01:33 Omeprazole (Prilosec) 40 mg PO DAILY@0630 DIPIKA PRN Reason: Protocol Stop: 03/07/18 08:16 Last Admin: 09/05/17 08:16 Dose: 40 mg Ondansetron HCl (Zofran) 4 mg IVP Q8HR PRN PRN Reason: Nausea And Vomiting Stop: 03/06/18 01:33 Simvastatin (Zocor) 20 mg PO HS DIPIKA PRN Reason: Protocol Stop: 03/06/18 21:01 Last Admin: 09/04/17 21:15 Dose: 20 mg Warfarin Sodium (Coumadin Perpt) 1 each PO DAILY@1800 PRN PRN Reason: SEE COMMENTS Stop: 03/07/18 18:01 Laboratory Tests 09/03/17 09/04/17 09/05/17 20:08 04:35 00:18 Hgb INR Creatinine 3.73 H 3.60 H 3.60 H 09/05/17 09/05/17 00:18 00:18 Hgb 10.5 L INR 3.2 Creatinine - Imaging and Cardiology Chest Xray: report reviewed Echo: report reviewed - EKG Interpretation EKG results cardiology: other (Telemetry reviewed with average HR previous 12 hours noted to be 90, atrial fibrillation. PVCS noted.) Consult Discharge Plan - Plan Referrals: Julio Ma MD [Primary Care Provider] - (web request sent on 09/04/17)
[2017-09-05 13:02] LABS: Hematocrit 31.1 % (37.5-50.1); Hemoglobin 9.7 g/dL (12.9-16.9)
[2017-09-05] MEDS: Albumin 25% 25gram/100mL 25 GM/100 ML IV.SOLN IVPB SCH (15:08)
--- NOTE | 2017-09-05 16:27 | Nephrology Progress Note ---
<Marcelino Cedeño - Last Filed: 09/05/17 16:25> Date of Encounter: 09/05/17 Time of Encounter: 16:25 - Assessment and Plan (1) Acute kidney injury Current Visit: Yes Status: Acute Acute kidney injury on chronic kidney disease stage IV. Likely due to acute exacerbation of congestive heart failure complicated by nephrotic range proteinuria. Patient has significant lower extremity edema with weight gain. He continued to take his home Lasix dose to 40 mg 3 times a day without relief of symptoms. Review of the patient's record reveals that he has had significant proteinuria for some time. Did have SPEP/UPEP in the past that was negative for monoclonal proteins. Protein creatinine ratio pending. Nephrotic range proteinuria with acute renal failure is likely due to underlying diabetes. Patient has been transitioned to Lasix drip by cardiology. Will add 25 g of 25% albumin twice a day. Unfortunately we have not been able to track urine output due to incontinence and difficulty placing Koch. Koch was placed today so we will closely monitor urine output and adjust Lasix drip as necessary, we will likely increase Lasix drip based on clinical response. If the patient does not continue to improve we can also considering adding Zaroxolyn We will continue to closely monitor his renal function, no indication for urgent renal replacement therapy at this time however patient may progress to needing hemodialysis depending on his clinical course. Hyponatremia: Mild, asymptomatic. Likely hypervolemic hyponatremia in the setting of acute exacerbation of heart failure. Slightly worse today. Continue diuresis as above. Continue to follow renal protective strategy by avoiding nephrotoxins and dosing medications based on GFR. Thank you for consulting the [facility] we will continue to follow with you. (2) Chronic kidney disease Current Visit: Yes Status: Acute Qualifiers: Chronic kidney disease stage: stage 4 (severe) Qualified Code(s): N18.4 - Chronic kidney disease, stage 4 (severe) (3) Proteinuria Current Visit: Yes Status: Acute Qualifiers: Proteinuria type: persistent Qualified Code(s): R80.1 - Persistent proteinuria, unspecified (4) Diastolic heart failure Current Visit: Yes Status: Acute Qualifiers: Heart failure chronicity: acute on chronic Qualified Code(s): I50.33 - Acute on chronic diastolic (congestive) heart failure (5) OSWALDO on CPAP Current Visit: Yes Status: Acute (6) Recurrent pleural effusion on right Current Visit: Yes Status: Acute (7) Afib Current Visit: Yes Status: Chronic Qualifiers: Atrial fibrillation type: chronic Qualified Code(s): I48.2 - Chronic atrial fibrillation Subjective Principal diagnosis: CHF, MARTIN Interval history: Patient seen and examined at bedside. Patient is a bit more confused and lethargic today. He denies any pain, shortness of breath. Objective - Vital Signs Vital signs: Vital Signs Temp Pulse Resp BP Pulse Ox 09/05/17 16:00 32 98 09/05/17 11:05 98.3 F 88 18 117/73 99 09/05/17 07:01 98.2 F 97 17 119/70 98 09/05/17 04:02 98.1 F 100 24 125/76 94 09/05/17 00:21 98.4 F 89 24 112/61 97 Intake and Output 09/05/17 09/05/17 09/05/17 07:59 15:59 23:59 Intake Total 840 / 840 Balance 840 / 840 Intake: Oral 840 / 840 Other: Meal Lunch Percent of Meal Consumed 10% # Urine Diapers 1 # Bowel Movement Diapers 1 Weight 97 kg Blood Glucose* 204 235 Patient Weight 09/05/17 23:59 Weight 97 kg - General Appearance General appearance: Present: well-developed, well-nourished, appears started age EENT: Present: ATNC, mucous membranes moist Neck: Present: supple Respiratory: Present: rales Cardiology: Present: no murmurs, no rub, no gallops, edema, regular rate, irregular rhythm Gastrointestinal: Present: hypoactive bowel sounds, no tenderness, no guarding, distended (Positive fluid wave) Integumentary: Present: chronic venous stasis Neurologic: Present: confused Musculoskeletal: Present: no cyanosis, no clubbing - Lab 09/05/17 12:54 09/05/17 00:18 Most recent lab results Calcium 9.1 mg/dL (8.6-10.3) 09/05/17 00:18 Phosphorus 4.2 mg/dL (2.7-4.5) 09/05/17 00:18 Magnesium 2.7 mg/dL (1.6-2.6) H 09/05/17 00:18 Consult Discharge Plan - Plan Referrals: Julio Ma MD [Primary Care Provider] - (web request sent on 09/04/17) <Kenrick Leigh - Last Filed: 09/06/17 15:44> Date of Encounter: 09/05/17 Objective - Vital Signs Vital signs: Vital Signs Temp Pulse Resp BP Pulse Ox 09/06/17 14:32 98.3 F 95 14 107/71 100 09/06/17 14:17 98.3 F 82 15 107/73 100 09/06/17 11:25 97.9 F 81 13 106/62 100 09/06/17 08:32 16 99 09/06/17 07:20 97.8 F 75 15 95/79 95 09/06/17 04:21 98.1 F 82 16 87/50 97 09/05/17 23:46 98.0 F 77 21 126/82 97 09/05/17 19:28 98.2 F 86 24 107/62 95 09/05/17 17:12 97.9 F 09/05/17 17:06 99.7 F H 09/05/17 16:32 100.8 F H 93 20 113/71 98 09/05/17 16:00 32 98 Intake and Output 09/05/17 09/06/17 09/06/17 23:59 07:59 15:59 Intake Total 100 / 100 400 / 400 414.4 / 414.4 Output Total 1750 / 1750 1969 / 1969 825 / 825 Balance -1650 / -1650 -1570 / -1570 -410.6 / -410.6 Intake: IV Fluids 100 / 100 391.4 / 391.4 0.9 % Sodium Chloride 250 ML As 150 / 150 .ROUTE .STK-MED ONE Rx#: [id number] Lasix 240 MG In Dextrose 5% 96 90.9 / 90.9 ML @ 5 MG/HR 2.5 mls/hr IVC . Q24H DIPIKA Rx#:[id number] Flexbumin 25 gm In 100 ml @ 60 100 / 100 100 / 100 mls/hr IVPB Q12H DIPIKA Rx#: [id number] AquaMephyton 5 MG In 0.9 % 50.5 / 50.5 Sodium Chloride 50 ML @ 100 mls /hr IVPB ONCE ONE Rx#: [id number] Oral 400 / 400 0 / 0 Blood Product Rbcs Leuko Poor As-3 2nd Unit [id number] Output: Urine 1750 / 1750 1969 / 1970 825 / 825 Other: Intake, CBI Fluid 1,500 3,000 3,000 Meal NPO Percent of Meal Consumed 0% Output, CBI Fluid 2,200 2,825 3,150 Stool Size Large Large Stool Consistency liquid loose Stool Color Brown Brown Black # Bowel Movement Diapers 1 Weight 105.5 kg Blood Glucose* 247 194 215 Patient Weight 09/06/17 23:59 Weight 105.5 kg - Lab 09/06/17 00:16 09/06/17 00:16 Most recent lab results ABG pH 7.25 pH Units (7.32-7.45) L 09/06/17 08:22 ABG pCO2 72 mmHg (35-45) H* 09/06/17 08:22 ABG pO2 36 mmHg (85-104) L* 09/06/17 08:22 ABG HCO3 31 mEq/L (21-27) H 09/06/17 08:22 ABG O2 Saturation 57 % (95-98) L 09/06/17 08:22 Calcium 9.2 mg/dL (8.6-10.3) 09/06/17 00:16 Phosphorus 4.2 mg/dL (2.7-4.5) 09/05/17 00:18 Magnesium 2.7 mg/dL (1.6-2.6) H 09/05/17 00:18 - Attending Attestation I examined this patient and my medical decision-making was reviewed with the Resident Physician. I agree with the documented findings, disposition and treatment plan as described except to the extent set forth below. Pt seen and examined with interim events noted. Pt known to me from management of CKD stage 4 in the past now appears very lethargic and on lasix gtt with no significant UOP documented. no koch in place as attempts by nursing failed due to scrotal edema, awaiting urology to see for better strict I/Os while on diuretics. Also discussed at great length with family goals of care given worsening renal fxn in the setting of CHF and diuresis. Discussed [employer] which they are not sure about if diuresis fails. Will add albumin to current regimen and consider metalozone as well. will follow with you.
[2017-09-05] MEDS ORDERED: Warfarin perPT PO PRN (18:00)
[2017-09-05 18:22] LABS: Hematocrit 31.6 % (37.5-50.1); Hemoglobin 9.9 g/dL (12.9-16.9)
--- NOTE | 2017-09-05 18:34 | Electrocardiograph Report ---
[address] [place] [address] Test Date: 2017-09-03 Pat Name: Johnson Marin Department: 102 Room: 2A44 Gender: M Brim Shaper: : 1930 Requested By: Herber Rush Order Number: [id number] Reading MD: Guzman Cardenas MD Measurements Intervals [place] Rate: 87 P: [place]: 0 QRS: -75 QRSD: 135 T: 118 QT: 396 QTc: 441 Interpretive Statements ATRIAL FIBRILLATION RIGHT BUNDLE BRANCH BLOCK INFERIOR MYOCARDIAL INFARCTION, PROBABLY OLD Electronically Signed On 09-05-2017 18:32:15 EST by Guzman Cardenas MD
--- NOTE | 2017-09-05 19:01 | Urology - Consult Note ---
Date of Encounter: 09/05/17 Time of Encounter: 18:59 - Assessment and Plan (1) Gross hematuria Current Visit: Yes Status: Acute Assessment and plan: I attempted to irrigate the patient's 16-Polish catheter which was unsuccessful. Catheter was then removed. I then placed a 24-Polish hematuria catheter into the patient's bladder. Patient had a significant amount of resistance at the meatus but I was able to negotiate past this. Immediate return of a small amount of clots were obtained. These were irrigated out using catheter tip syringe and normal saline. When irrigating the patient's bladder I can only irrigate approximately 30-40 mL before the patient had severe pain. Because of this limited irrigation I was concerned regarding either larger clot in the bladder or malposition of the catheter. A stat CT scan was performed of the pelvis. This revealed correct positioning of the catheter as well as no clot within the patient's bladder. Patient will need continuous bladder irrigation at this time. We will continue to follow along. (2) [id number] kidney injury Current Visit: Yes Status: Acute Assessment and plan: Unlikely to be secondary to obstruction as patient had renal ultrasound which did not reveal any obvious urine within the bladder. Qualifiers: Acute renal failure type: unspecified Chronic kidney disease stage: stage 4 (severe) Qualified Code(s): N17.9 - Acute kidney failure, unspecified; N18.4 - Chronic kidney disease, stage 4 (severe); N18.4 - Chronic kidney disease , stage 4 (severe); N18.4 - Chronic kidney disease, stage 4 (severe); N18.4 - Chronic kidney disease, stage 4 (severe) Urology CN:GINNY Consult date: 09/05/17 Reason for consult Urology: Gross Hematuria Requesting physician: Girish Rainey History of present illness: Johnson is an 86-year-old male admitted to the hospital secondary to worsening edema and volume overload. Patient had had a catheter placed earlier today. Nursing staff stated that the urine was dark with bloody urine ever since placement. I was asked to evaluate the patient because of this problem. I had seen the patient in the past regarding a left spermatocele. Patients states that he has had minimal difficulty voiding but does void frequently. 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 Brand cyst, nephrolithiasis, hypertension) Psychiatric history: no psych history - Past Surgical History Surgical History: orthopedic, other, other (Thoracentesis in August 192016 removing 1250 mL from the right lung, lithotripsy, carpal tunnel syndrome surgery, TURP, cataracts, Mohs surgery due to BCC) - Social History Smoking Status: Never smoker Smokeless Tobacco Status: No Alcohol use: none Drug use: none - Family History Daughter Adopted: [place]: ashia Living Status: Still Living Father Name: Peterson Family Member Ethnicity: Non- Living Status: Age at : 85 Cause of : CHF Hx Family Cardiac Disorders: Yes Medications and Allergies Allopurinol [Zyloprim 300 MG] 300 mg PO DAILY 01/21/16 [History] Aspirin 81 mg PO DAILY 01/21/16 [History] Furosemide [Lasix] 40 mg PO TID 01/21/16 [History] Insulin Glargine [Lantus] 0 - 10 units SQ HS 01/21/16 [History] Warfarin [Coumadin] 5 mg PO MOWEFR 01/21/16 [History] cloNIDine HCl [CloNIDine HCl] 0.1 mg PO BID PRN 01/21/16 [History] Carvedilol [Coreg] 6.25 mg PO BID 08/19/17 [History] Simvastatin [Zocor] 20 mg PO HS 08/19/17 [History] Insulin LISPRO [Humalog Kwikpen U-100] 0 unit SQ TIDAC PRN 09/03/17 [History] Lisinopril [Zestril] 40 mg PO DAILY 09/03/17 [History] Oxygen 2.5 l NS AD 09/03/17 [History] Warfarin [Coumadin] 2.5 mg PO SUTUTHSA 09/03/17 [History] 3 Allergy/AdvReac Type Severity Reaction Status Date / Time metoprolol [From Toprol XL] Allergy Difficulty Verified 08/19/17 12:50 Breathing morphine Allergy Difficulty Verified 08/19/17 12:50 Breathing Review of Systems ROS unobtainable: due to mental status Exam Initial Vital Signs Temp Pulse Resp BP Pulse Ox 97.3 F L 85 20 125/72 93 09/03/17 18:48 09/03/17 18:48 09/03/17 18:48 09/03/17 18:48 09/03/17 18:48 - General physical appearance Present: well developed, moderate pain - Eyes Absent: icteric - Neck Present: no lymphadenopathy - Respiratory Present: other (Appears slightly struggled to breathe. On nasal cannula oxygen) - Cardiovascular Cardiovascular exam IM: RRR - Abdomen Abdomen: Present: soft, suprapubic tenderness - Genitourinary other (Blood around markedly edematous penis and scrotum) - Integumentary Present: no rash, no abnormal pigmentation Urology Results - Labs 09/05/17 18:05 09/05/17 00:18 Abnormal lab results RBC 3.08 M/mcL (4.19-5.50) L 09/05/17 00:18 Hgb 9.9 g/dL (12.9-16.9) L 09/05/17 18:05 Hct 31.6 % (37.5-50.1) L 09/05/17 18:05 MCV 106.8 fL (83.0-100.0) H 09/05/17 00:18 MCH 34.1 pg (28.0-33.3) H 09/05/17 00:18 RDW 17.3 % (11.5-14.5) H 09/05/17 00:18 Monocytes # 1.5 K/mcL (0.0-1.3) H 09/05/17 00:18 Nucleated RBCs/100 WBC 0.3 /100 WBC (0) H 09/04/17 04:35 PT 35.1 Seconds (9.4-12.1) H 09/05/17 00:18 Sodium 132 mEq/L (136-145) L 09/05/17 00:18 Chloride 96 mEq/L (98-107) L 09/05/17 00:18 BUN 106 mg/dL (8-23) H 09/05/17 00:18 Creatinine 3.60 mg/dL (0.70-1.30) H 09/05/17 00:18 Est GFR ( Amer) 20 (> 60) L 09/05/17 00:18 Est GFR (Non-Af Amer) 16 (> 60) L 09/05/17 00:18 BUN/Creatinine Ratio 29 (6-26) H 09/05/17 00:18 Glucose 175 mg/dL (70-105) H 09/05/17 00:18 POC Glucose 171 (58-89) H 09/04/17 21:10 Calculated Osmolality 312 (280-300) H 09/05/17 00:18 Magnesium 2.7 mg/dL (1.6-2.6) H 09/05/17 00:18 Direct Bilirubin 0.3 mg/dL (0.0-0.2) H 09/03/17 20:08 Alkaline Phosphatase 289 Units/L (34-104) H 09/03/17 20:08 Troponin I 0.05 ng/mL (< 0.04) H* 09/04/17 04:35 B-Natriuretic Peptide 531 pg/mL (Less than 100) H 09/03/17 20:08 Serum Total Protein 6.3 g/dL (6.4-8.9) L 09/03/17 20:08 Albumin 3.1 g/dL (3.5-5.7) L 09/03/17 20:08 Albumin/Globulin Ratio 1.0 (1.1-2.2) L 09/03/17 20:08 Diabetes panel 09/05/17 Range/Units 00:18 Sodium 132 L (136-145) mEq/L Potassium 4.5 (3.5-5.1) mEq/L Chloride 96 L (98-107) mEq/L Carbon Dioxide 28 (23-29) mEq/L BUN 106 H (8-23) mg/dL Creatinine 3.60 H (0.70-1.30) mg/dL Glucose 175 H (70-105) mg/dL Calcium 9.1 (8.6-10.3) mg/dL Calcium panel 09/05/17 09/05/17 Range/Units 00:18 00:18 Calcium 9.1 (8.6-10.3) mg/dL Phosphorus 4.2 (2.7-4.5) mg/dL Pituitary panel 09/05/17 Range/Units 00:18 Sodium 132 L (136-145) mEq/L Potassium 4.5 (3.5-5.1) mEq/L Chloride 96 L (98-107) mEq/L Carbon Dioxide 28 (23-29) mEq/L BUN 106 H (8-23) mg/dL Creatinine 3.60 H (0.70-1.30) mg/dL Glucose 175 H (70-105) mg/dL Calcium 9.1 (8.6-10.3) mg/dL Adrenal panel 09/05/17 Range/Units 00:18 Sodium 132 L (136-145) mEq/L Potassium 4.5 (3.5-5.1) mEq/L Chloride 96 L (98-107) mEq/L Carbon Dioxide 28 (23-29) mEq/L BUN 106 H (8-23) mg/dL Creatinine 3.60 H (0.70-1.30) mg/dL Glucose 175 H (70-105) mg/dL Calcium 9.1 (8.6-10.3) mg/dL All other labs normal. - Imaging CT scan - pelvis: image reviewed Consult Discharge Plan - Plan Referrals: Julio Ma MD [Primary Care Provider] - (web request sent on 09/04/17)
[2017-09-05] MEDS: Insulin DETEMIR 100 UNIT/ML X5UNITS SQ SCH (19:54)
[2017-09-05] MEDS: *HR* OxyCODONE/APAP 5/325 TABLET PO PRN (22:08)
[2017-09-05] MEDS ORDERED: 0.9 % Sodium Chloride 250 ML ONE (22:16)
[2017-09-06 00:23] LABS: Basophils % 0.4 %; Eosinophils # 0.1 K/mcL (0.0-0.6); Eosinophils % 1.2 %; Hematocrit 31.2 % (37.5-50.1); Hemoglobin 9.8 g/dL (12.9-16.9); Immature Granulocytes % 1.6 % (0-4); Lymphocytes # 0.7 K/mcL (0.6-4.6); Lymphocytes % 7.2 %; Mean Corpuscular HGB Conc 31.4 g/dL (31.6-35.5); Mean Corpuscular Hemoglobin 34.5 pg (28.0-33.3); Mean Corpuscular Volume 109.9 fL (83.0-100.0); Mean Platelet Volume 9.8 fL (9.4-12.4); Monocytes # 0.9 K/mcL (0.0-1.3); Monocytes % 8.9 %; Neutrophils # 8.2 K/mcL (1.6-8.9); Platelet Count 150 K/mcL (140-400); Red Blood Count 2.84 M/mcL (4.19-5.50); Red Cell Distribution Width 17.2 % (11.5-14.5); Segmented Neutrophils % 80.7 %
[2017-09-06 00:29] LABS: INR 2.6; Prothrombin Time 28.4 Seconds (9.4-12.1)
[2017-09-06 00:58] LABS: Calcium 9.2 mg/dL (8.6-10.3); Potassium 4.3 mEq/L (3.5-5.1)
[2017-09-06] MEDS: Albumin 25% 25gram/100mL 25 GM/100 ML IV.SOLN IVPB SCH (02:54)
[2017-09-06] MEDS: *HR* OxyCODONE/APAP 5/325 TABLET PO PRN (02:54)
--- NOTE | 2017-09-06 07:30 | Urology Progress Note ---
Date of Encounter: 09/06/17 Time of Encounter: 07:28 - Assessment and Plan (1) Gross hematuria Current Visit: Yes Status: Acute Assessment and plan: will continue to observe with CBI at this time. hgb stable. (2) Jkfty-[id number]-mfcquxa kidney injury Current Visit: Yes Status: Acute Assessment and plan: serum creatinine stable, but not improved. Qualifiers: Acute renal failure type: unspecified Chronic kidney disease stage: stage 4 (severe) Qualified Code(s): N17.9 - Acute kidney failure, unspecified; N18.4 - Chronic kidney disease, stage 4 (severe); N18.4 - Chronic kidney disease , stage 4 (severe); N18.4 - Chronic kidney disease, stage 4 (severe); N18.4 - Chronic kidney disease, stage 4 (severe) Progress Note Narrative: Patient seen. Had to be irrigated a couple of times last night. patient resting. Objective Initial Vital Signs Temp Pulse Resp BP Pulse Ox 97.3 F L 85 20 125/72 93 09/03/17 18:48 09/03/17 18:48 09/03/17 18:48 09/03/17 18:48 09/03/17 18:48 - General physical appearance Present: well developed - Abdomen Present: soft - Labs 09/06/17 00:16 09/06/17 00:16 Diabetes panel 09/06/17 Range/Units 00:16 Sodium 132 L (136-145) mEq/L Potassium 4.3 (3.5-5.1) mEq/L Chloride 95 L (98-107) mEq/L Carbon Dioxide 30 H (23-29) mEq/L BUN 119 H (8-23) mg/dL Creatinine 3.92 H (0.70-1.30) mg/dL Glucose 210 H (70-105) mg/dL Calcium 9.2 (8.6-10.3) mg/dL Calcium panel 09/06/17 Range/Units 00:16 Calcium 9.2 (8.6-10.3) mg/dL Pituitary panel 09/06/17 Range/Units 00:16 Sodium 132 L (136-145) mEq/L Potassium 4.3 (3.5-5.1) mEq/L Chloride 95 L (98-107) mEq/L Carbon Dioxide 30 H (23-29) mEq/L BUN 119 H (8-23) mg/dL Creatinine 3.92 H (0.70-1.30) mg/dL Glucose 210 H (70-105) mg/dL Calcium 9.2 (8.6-10.3) mg/dL Adrenal panel 09/06/17 Range/Units 00:16 Sodium 132 L (136-145) mEq/L Potassium 4.3 (3.5-5.1) mEq/L Chloride 95 L (98-107) mEq/L Carbon Dioxide 30 H (23-29) mEq/L BUN 119 H (8-23) mg/dL Creatinine 3.92 H (0.70-1.30) mg/dL Glucose 210 H (70-105) mg/dL Calcium 9.2 (8.6-10.3) mg/dL Consult Discharge Plan - Plan Referrals: Julio Ma MD [Primary Care Provider] - (web request sent on 09/04/17)
[2017-09-06 08:32] LABS: ABG Base Excess 3 mEq/L (-2 to 3); ABG HCO3 31 mEq/L (21-27); ABG Oxygen Saturation 57 % (95-98); ABG PCO2 72 mmHg (35-45); ABG PH 7.25 pH Units (7.32-7.45); ABG PO2 36 mmHg (85-104); ABG TCO2 34 mEq/L (20-26)
[2017-09-06] MEDS: Furosemide 240 MG in D5% in Water 96 ML IVC SCH (08:49)
--- NOTE | 2017-09-06 09:09 | Cardiology Progress Note ---
Date of Encounter: 09/06/17 Time of Encounter: 09:06 Assessment and Plan (1) Diastolic heart failure Current Visit: Yes Status: Acute Qualifiers: Heart failure chronicity: acute on chronic Qualified Code(s): I50.33 - Acute on chronic diastolic (congestive) heart failure (2) Congestive heart failure Current Visit: Yes Status: Acute Per cardiology: -Acute on chronic diastolic CHF in the setting of MARTIN. -Continues to have volume overloaded on exam. -Reports weight gain of 7 pounds at home on presentation. -On lasix drip at 5mg/hour. -Chest x-ray with pulmonary edema noted. -Repeat CXR today. -BNP 531. -Of note, MARTIN on CKD with creatinine 3.73 on admission. Poor urine output. Nephrology consulted and considering dialysis due to no improvement in function. Garcia catheter placed by urology and blood clots seen but no urine return. Bladder US showed no urine. Still has no significant urine output when factoring in CBI. -Continue diuresis. Appreciate nephrology recommendations. At this point we will defer fluid status management to nephrology due to no response to lasix. -Discussed with Dr. Sr, possible transfer to ICU due to decline in clinical status. -I discussed plan of care with . Questions answered. He is a DNRCCA. -Continue strict i/os, daily weights, fluid restriction. - Please call with changes or questions. Qualifiers: Congestive heart failure type: diastolic Congestive heart failure chronicity: acute on chronic Qualified Code(s): I50.33 - Acute on chronic diastolic (congestive) heart failure (3) Acute kidney injury Current Visit: Yes Status: Acute Per cardiology: -MARTIN on CKD. -Creatinine on admission 3.73, today 3.92. -Nephrology following. -Appreciate nephrology recommendations. (4) Elevated troponin Current Visit: Yes Status: Acute Per cardiology: -Troponins 0.04, 0.05. Troponins flat and adynamic in the setting of CHF, MARTIN. -Denies chest pain. -ECG with no acute ischemic changes. -12/2015 TTE with LVEF 55%, no segmental wall motion abnormalities. - TTE this admission- LVEF 50-55%. Normal LV chamber size and function. Mild concentric left ventricular hypertrophy. Atypical septal motion consistent with bundle branch block. Mildly dilated right ventricle. Mild right ventricular hypokinesis. Severely dilated left atrium. Severely dilated right atrium. Moderate tricuspid regurgitation. Mild mitral regurgitation. Severe pulmonary hypertension. Estimated RVSP is >90 mmHg. -2013 stress negative. -On asa, statin, beta jenni. INR supratherapeutic on admisison. -Do not suspect NSTEMI, suspect demand ischemia related to above. NO cardiac rehab warranted at this time. (5) Afib Current Visit: Yes Status: Chronic Per cardiology: -Known atrial fibrillation. -Rate controlled on beta jenni. -ON coumadin. Of note, patient did report black stool. Stool OB is negative. Discussed with Dr. Sr, there is still concern for GI bleed due to decreasing HGB. Hold coumadin until further evaluation. Restart when bleeding risk does does not prohibit. -Continue to monitor telemetry. Avg HR 87bpm. Qualifiers: Atrial fibrillation type: chronic Qualified Code(s): I48.2 - Chronic atrial fibrillation Discussion w patient/family: The assessment and plan as outlined above was discussed with the patient and/or family members who expressed understanding and agreement. All questions were answered. Thank you for involving us in the care of your patient. Please call with any questions. Subjective Principal diagnosis: CHF, MARTIN Interval history: Mr. Marin is lethargic this morning. Arouses only with painful stimuli. SPO2 79% despite c-pap. O2 via nasal cannula applied and spo2 increased to 98%. at bedside. Objective Vital Signs, Last 4 Hours Temp Pulse Resp BP Pulse Ox 09/06/17 08:32 16 99 09/06/17 07:20 97.8 F 75 15 95/79 95 General: Other (Unable to arouse. Eyes flutter with sternal rub. Patient repositioned for chest x-ray and his eyes opened but he is not talking. Extremities appear mottled. ) HEENT: Atraumatic, Normocephaly, Mucus Membranes Moist Neck: No JVD, Normal carotid pulses Cardiac: Reg Rate and Rhythm, Normal S1 and S2, No Murmur Lungs: Other (lung sounds diminished) Neuro: Other (responds to painful stimuli.) Abdomen: Soft, Non-Tender Skin: Other (extremities mottled) Extremities: Other (1+ BLE edema.) Results 09/06/17 00:16 09/06/17 00:16 Lab Results 01/01/1609/05/17 09/06/17 12:54 18:05 00:16 WBC Hgb 9.7 L 9.9 L Hct 31.1 L 31.6 L Plt Count INR 2.6 Sodium Potassium Chloride Carbon Dioxide BUN Creatinine Glucose Calcium 09/06/17 09/06/17 00:16 00:16 WBC 10.2 Hgb 9.8 L Hct 31.2 L Plt Count 150 INR Sodium 132 L Potassium 4.3 Chloride 95 L Carbon Dioxide 30 H BUN 119 H Creatinine 3.92 H Glucose 210 H Calcium 9.2 - Imaging and Cardiology Echo: report reviewed Consult Discharge Plan - Plan Referrals: Julio Ma MD [Primary Care Provider] - (web request sent on 09/04/17)
--- NOTE | 2017-09-06 09:15 | Pulmonology Consult Note ---
Date of Encounter: 09/06/17 Time of Encounter: 09:00 History of Present Illness Consult date: 09/06/17 Requesting physician: Theron Sr Reason for consult: dyspnea, other (Respiratory failure) Chief complaint: Shortness of breath History of present illness: This is a 86-year-old gentleman with multiple medical problems and he is known to me from previous hospitalization. Apparently this morning patient was more lethargic and respiratory distress and patient was on CPAP at that time then an ABG was done with evidence of hypercapnia and he was placed on BiPAP at this time. Patient is not able to give any history due to lethargy and also he is on BiPAP and history is taken from the at the bedside and also from the chart. She denies history of diastolic congestive heart failure and he is on Coumadin and also noticed to have hematuria. Patient has worsening shortness of breath with lower extremity edema. No fever or chills and his INR is elevated. Patient was treated with diuretics. No sputum production or wheezing. 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 Brand cyst, nephrolithiasis, hypertension) Psychiatric history: no psych history - Past Surgical History Surgical History: orthopedic, other, other (Thoracentesis in August 192016 removing 1250 mL from the right lung, lithotripsy, carpal tunnel syndrome surgery, TURP, cataracts, Mohs surgery due to BCC) - Social History Smoking Status: Never smoker Smokeless Tobacco Status: No Alcohol use: none Drug use: none - Family History Daughter Adopted: [place]: ashia Living Status: Still Living Father Name: Peterson Family Member Ethnicity: Non- Living Status: Age at : 85 Cause of : CHF Hx Family Cardiac Disorders: Yes Medications and Allergies Allopurinol [Zyloprim 300 MG] 300 mg PO DAILY 01/21/16 [History] Aspirin 81 mg PO DAILY 01/21/16 [History] Furosemide [Lasix] 40 mg PO TID 01/21/16 [History] Insulin Glargine [Lantus] 0 - 10 units SQ HS 01/21/16 [History] Warfarin [Coumadin] 5 mg PO MOWEFR 01/21/16 [History] cloNIDine HCl [CloNIDine HCl] 0.1 mg PO BID PRN 01/21/16 [History] Carvedilol [Coreg] 6.25 mg PO BID 08/19/17 [History] Simvastatin [Zocor] 20 mg PO HS 08/19/17 [History] Insulin LISPRO [Humalog Kwikpen U-100] 0 unit SQ TIDAC PRN 09/03/17 [History] Lisinopril [Zestril] 40 mg PO DAILY 09/03/17 [History] Oxygen 2.5 l NS AD 09/03/17 [History] Warfarin [Coumadin] 2.5 mg PO SUTUTHSA 09/03/17 [History] 3 Allergy/AdvReac Type Severity Reaction Status Date / Time metoprolol [From Toprol XL] Allergy Difficulty Verified 08/19/17 12:50 Breathing morphine Allergy Difficulty Verified 08/19/17 12:50 Breathing ROS unobtainable: due to mental status All Systems: A 10-system review of systems was performed and is negative for pertinent findings except as documented above in the HPI. Physical Examination Vital Signs: Vital Signs, Last 4 Hours Temp Pulse Resp BP Pulse Ox 09/06/17 08:32 16 99 09/06/17 07:20 97.8 F 75 15 95/79 95 General appearance: no acute distress, lethargic Eyes: nonicteric ENT: oropharynx dry Neck: supple Effort: normal Auscultation: bilateral: diminished breath sounds Percussion: bilateral: not dull Cardiovascular: irregular rhythm Gastrointestinal: normoactive bowel sounds Extremities: edema unable to assess due to mental status Ventilator Settings Ventilator Settings: Patient is on BiPAP 16/04 with FiO2 of 35% Results - Laboratory Findings CBC and BMP: 09/06/17 00:16 09/06/17 00:16 ABG ABG pH 7.25 pH Units (7.32-7.45) L 09/06/17 08:22 ABG pCO2 72 mmHg (35-45) H* 09/06/17 08:22 ABG pO2 36 mmHg (85-104) L* 09/06/17 08:22 ABG O2 Saturation 57 % (95-98) L 09/06/17 08:22 PT/INR, D-dimer PT 28.4 Seconds (9.4-12.1) H 09/06/17 00:16 Abnormal lab findings: Abnormal lab results RBC 2.84 M/mcL (4.19-5.50) L 09/06/17 00:16 Hgb 9.8 g/dL (12.9-16.9) L 09/06/17 00:16 Hct 31.2 % (37.5-50.1) L 09/06/17 00:16 MCV 109.9 fL (83.0-100.0) H 09/06/17 00:16 MCH 34.5 pg (28.0-33.3) H 09/06/17 00:16 MCHC 31.4 g/dL (31.6-35.5) L 09/06/17 00:16 RDW 17.2 % (11.5-14.5) H 09/06/17 00:16 Nucleated RBCs/100 WBC 0.3 /100 WBC (0) H 09/04/17 04:35 PT 28.4 Seconds (9.4-12.1) H 09/06/17 00:16 ABG pH 7.25 pH Units (7.32-7.45) L 09/06/17 08:22 ABG pCO2 72 mmHg (35-45) H* 09/06/17 08:22 ABG pO2 36 mmHg (85-104) L* 09/06/17 08:22 ABG HCO3 31 mEq/L (21-27) H 09/06/17 08:22 ABG Total CO2 34 mEq/L (20-26) H 09/06/17 08:22 ABG O2 Saturation 57 % (95-98) L 09/06/17 08:22 Sodium 132 mEq/L (136-145) L 09/06/17 00:16 Chloride 95 mEq/L (98-107) L 09/06/17 00:16 Carbon Dioxide 30 mEq/L (23-29) H 09/06/17 00:16 BUN 119 mg/dL (8-23) H 09/06/17 00:16 Creatinine 3.92 mg/dL (0.70-1.30) H 09/06/17 00:16 Est GFR ( Amer) 18 (> 60) L 09/06/17 00:16 Est GFR (Non-Af Amer) 15 (> 60) L 09/06/17 00:16 BUN/Creatinine Ratio 30 (6-26) H 09/06/17 00:16 Glucose 210 mg/dL (70-105) H 09/06/17 00:16 POC Glucose 247 (58-89) H 09/05/17 19:52 Calculated Osmolality 318 (280-300) H 09/06/17 00:16 Magnesium 2.7 mg/dL (1.6-2.6) H 09/05/17 00:18 Direct Bilirubin 0.3 mg/dL (0.0-0.2) H 09/03/17 20:08 Alkaline Phosphatase 289 Units/L (34-104) H 09/03/17 20:08 Troponin I 0.05 ng/mL (< 0.04) H* 09/04/17 04:35 B-Natriuretic Peptide 531 pg/mL (Less than 100) H 09/03/17 20:08 Serum Total Protein 6.3 g/dL (6.4-8.9) L 09/03/17 20:08 Albumin 3.1 g/dL (3.5-5.7) L 09/03/17 20:08 Albumin/Globulin Ratio 1.0 (1.1-2.2) L 09/03/17 20:08 - Diagnostic Findings Chest x-ray: report reviewed, image reviewed - Clinical Findings Intake & Output: Intake & Output 09/05/17 09/06/17 09/06/17 23:59 07:59 15:59 Intake Total 100 / 100 400 / 400 340.9 / 340.9 Output Total 1750 / 1750 1969 / 1969 Balance -1650 / -1650 -1570 / -1570 340.9 / 340.9 Weight 105.5 kg Consult Discharge Plan - Plan Referrals: Julio Ma MD [Primary Care Provider] - (web request sent on 09/04/17) - Attending Attestation Assessment and plan: I was called by the primary team because patient needs to come to ICU and since then with the patient and his I discussed his CODE STATUS and patient is DNR/DNI and his mean treated appropriately in the floor for his hypercapnic respiratory failure with noninvasive ventilation and depends on his clinical condition and how he responds may need to repeat ABG to see the response to the treatment. Patient has significant underlying cardiovascular disease and chronic kidney disease that makes his fluid management very difficult especially to diuresis patient. Patient also has hematuria and urology has seen the patient. I have discussed this with the family at the bedside and the primary team and this time no need to be transferred to ICU, however if procedures needs to be done that needs ICU bed that can always be considered. Thank you for the consultation and please do not hesitate to call should you have any questions.
[2017-09-06] MEDS: Insulin LISPRO 300 UNITS/3 ML VIAL SQ SCH ×4 (09:32→21:48)
[2017-09-06] MEDS ORDERED: 0.9 % Sodium Chloride 250 ML ONE (12:22)
--- NOTE | 2017-09-06 12:59 | General Surgery Consult Note ---
<Lisbeth Tavera - Last Filed: 09/06/17 14:02> Date of Encounter: 09/06/17 Time of Encounter: 12:00 Assessment and Plan (1) Black stool Current Visit: Yes Status: Acute The patient and family reports occasional black stools. Hgb is 9.8 but has been trending down from 11.1 at admission Patient has been on warfarin for A. fib, which has been stopped at this admission. May perform EGD/ colonoscopy to investigate the cause of potential GI bleed The patient is hemodynamically stable. There is blood in koch catheter but no other obvious source of bleeding. recommend reversing INR to normal levels continue to monitor Hgb and INR will monitor the patient for hemorrhaging will re-evaluate patient tomorrow (2) Afib Current Visit: Yes Status: Chronic patient has a.fib and taking warfarin for anticoagulation. Warfarin has been stopped due to Hgb trending down and concern for GI bleed Qualifiers: Atrial fibrillation type: chronic Qualified Code(s): I48.2 - Chronic atrial fibrillation (3) Diastolic heart failure Current Visit: Yes Status: Acute admitted and being treated for diastolic heart failure Qualifiers: Heart failure chronicity: acute on chronic Qualified Code(s): I50.33 - Acute on chronic diastolic (congestive) heart failure History of Present Illness Consult date: 09/06/17 Reason for consult: other (hemoglobin trending down) Requesting physician: Theron Sr History of present illness: 86year old male with a past medical history of diastolic CHF and right pleural effusion, A. fib on warfarin, CKD who presented to [facility] complaining of shortness of breathe and lower extremity edema. The patient is currently being treated for diastolic CHF and acute on chronic kidney injury. The patient and his family reported occasional black stools. The Hgb has been trending down throughout his admission, was 11.1 and now 9.8. His koch catheter has blood in it. His INR was supratherapeutic at admission but is now 2.6. There is no other obvious sign of active bleeding. The patient was on bipap sleeping at time of assessment so history was given by the medicine team and family. 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 Brand cyst, nephrolithiasis, hypertension) Psychiatric history: no psych history - Past Surgical History Surgical History: orthopedic, other, other (Thoracentesis in August 192016 removing 1250 mL from the right lung, lithotripsy, carpal tunnel syndrome surgery, TURP, cataracts, Mohs surgery due to BCC) - Social History Smoking Status: Never smoker Smokeless Tobacco Status: No Alcohol use: none Drug use: none - Family History Daughter Adopted: [place]: ashia Living Status: Still Living Father Name: Peterson Family Member Ethnicity: Non- Living Status: Age at : 86 Cause of : CHF Hx Family Cardiac Disorders: Yes Medications and Allergies Allopurinol [Zyloprim 300 MG] 300 mg PO DAILY 01/21/16 [History] Aspirin 81 mg PO DAILY 01/21/16 [History] Furosemide [Lasix] 40 mg PO TID 01/21/16 [History] Insulin Glargine [Lantus] 0 - 10 units SQ HS 01/21/16 [History] Warfarin [Coumadin] 5 mg PO MOWEFR 01/21/16 [History] cloNIDine HCl [CloNIDine HCl] 0.1 mg PO BID PRN 01/21/16 [History] Carvedilol [Coreg] 6.25 mg PO BID 08/19/17 [History] Simvastatin [Zocor] 20 mg PO HS 08/19/17 [History] Insulin LISPRO [Humalog Kwikpen U-100] 0 unit SQ TIDAC PRN 09/03/17 [History] Lisinopril [Zestril] 40 mg PO DAILY 09/03/17 [History] Oxygen 2.5 l NS AD 09/03/17 [History] Warfarin [Coumadin] 2.5 mg PO SUTUTHSA 09/03/17 [History] 3 Allergy/AdvReac Type Severity Reaction Status Date / Time metoprolol [From Toprol XL] Allergy Difficulty Verified 08/19/17 12:50 Breathing morphine Allergy Difficulty Verified 08/19/17 12:50 Breathing Review of Systems ROS unobtainable: other (patient on bipap and sleeping) All systems PM: A 10-system review of systems was performed and is negative for pertinent findings except as documented above in the HPI. General Surgery Exam Initial Vital Signs Temp Pulse Resp BP Pulse Ox 97.3 F L 85 20 125/72 93 09/03/17 18:48 18 18:48 09/03/17 18:48 09/03/17 18:48 09/03/17 18:48 - General physical appearance well developed, well nourished, no distress - Respiratory normal expansion crackles: left - Cardiovascular Cardiovascular exam: Present: RRR - Abdomen Abdomen general surgery: Present: soft, distended. Absent: bowel sounds present Exam Initial Vital Signs Temp Pulse Resp BP Pulse Ox 97.3 F L 85 20 125/72 93 09/03/17 18:48 09/03/17 18:48 09/03/17 18:48 09/03/17 18:48 09/03/17 18:48 Results - Labs 09/06/17 00:16 09/06/17 00:16 Abnormal lab results RBC 2.84 M/mcL (4.19-5.50) L 09/06/17 00:16 Hgb 9.8 g/dL (12.9-16.9) L 09/06/17 00:16 Hct 31.2 % (37.5-50.1) L 09/06/17 00:16 MCV 109.9 fL (83.0-100.0) H 09/06/17 00:16 MCH 34.5 pg (28.0-33.3) H 09/06/17 00:16 MCHC 31.4 g/dL (31.6-35.5) L 09/06/17 00:16 RDW 17.2 % (11.5-14.5) H 09/06/17 00:16 Nucleated RBCs/100 WBC 0.3 /100 WBC (0) H 09/04/17 04:35 PT 28.4 Seconds (9.4-12.1) H 09/06/17 00:16 ABG pH 7.25 pH Units (7.32-7.45) L 09/06/17 08:22 ABG pCO2 72 mmHg (35-45) H* 09/06/17 08:22 ABG pO2 36 mmHg (85-104) L* 01/06/18 08:22 ABG HCO3 31 mEq/L (21-27) H 09/06/17 08:22 ABG Total CO2 34 mEq/L (20-26) H 09/06/17 08:22 ABG O2 Saturation 57 % (95-98) L 09/06/17 08:22 Sodium 132 mEq/L (136-145) L 09/06/17 00:16 Chloride 95 mEq/L (98-107) L 09/06/17 00:16 Carbon Dioxide 30 mEq/L (23-29) H 09/06/17 00:16 BUN 119 mg/dL (8-23) H 09/06/17 00:16 Creatinine 3.92 mg/dL (0.70-1.30) H 09/06/17 00:16 Est GFR ( Amer) 18 (> 60) L 09/06/17 00:16 Est GFR (Non-Af Amer) 15 (> 60) L 09/06/17 00:16 BUN/Creatinine Ratio 30 (6-26) H 09/06/17 00:16 Glucose 210 mg/dL (70-105) H 09/06/17 00:16 POC Glucose 247 (58-89) H 09/05/17 19:52 Calculated Osmolality 318 (280-300) H 09/06/17 00:16 Magnesium 2.7 mg/dL (1.6-2.6) H 09/05/17 00:18 Direct Bilirubin 0.3 mg/dL (0.0-0.2) H 09/03/17 20:08 Alkaline Phosphatase 289 Units/L (34-104) H 09/03/17 20:08 Troponin I 0.05 ng/mL (< 0.04) H* 09/04/17 04:35 B-Natriuretic Peptide 531 pg/mL (Less than 100) H 09/03/17 20:08 Serum Total Protein 6.3 g/dL (6.4-8.9) L 09/03/17 20:08 Albumin 3.1 g/dL (3.5-5.7) L 09/03/17 20:08 Albumin/Globulin Ratio 1.0 (1.1-2.2) L 09/03/17 20:08 Diabetes panel 09/06/17 Range/Units 00:16 Sodium 132 L (136-145) mEq/L Potassium 4.3 (3.5-5.1) mEq/L Chloride 95 L (98-107) mEq/L Carbon Dioxide 30 H (23-29) mEq/L BUN 119 H (8-23) mg/dL Creatinine 3.92 H (0.70-1.30) mg/dL Glucose 210 H (70-105) mg/dL Calcium 9.2 (8.6-10.3) mg/dL Calcium panel 09/06/17 Range/Units 00:16 Calcium 9.2 (8.6-10.3) mg/dL Pituitary panel 09/06/17 Range/Units 00:16 Sodium 132 L (136-145) mEq/L Potassium 4.3 (3.5-5.1) mEq/L Chloride 95 L (98-107) mEq/L Carbon Dioxide 30 H (23-29) mEq/L BUN 119 H (8-23) mg/dL Creatinine 3.92 H (0.70-1.30) mg/dL Glucose 210 H (70-105) mg/dL Calcium 9.2 (8.6-10.3) mg/dL Adrenal panel 09/06/17 Range/Units 00:16 Sodium 132 L (136-145) mEq/L Potassium 4.3 (3.5-5.1) mEq/L Chloride 95 L (98-107) mEq/L Carbon Dioxide 30 H (23-29) mEq/L BUN 119 H (8-23) mg/dL Creatinine 3.92 H (0.70-1.30) mg/dL Glucose 210 H (70-105) mg/dL Calcium 9.2 (8.6-10.3) mg/dL All other labs normal. Consult Discharge Plan - Plan Referrals: Julio Ma MD [Primary Care Provider] - (web request sent on 09/04/17) <Dexter Yung - Last Filed: 09/07/17 10:30> Date of Encounter: 09/06/17 Review of Systems All systems PM: A 10-system review of systems was performed and is negative for pertinent findings except as documented above in the HPI. General Surgery Exam Initial Vital Signs Temp Pulse Resp BP Pulse Ox 97.3 F L 85 20 125/72 93 09/03/17 18:48 09/03/17 18:48 09/03/17 18:48 09/03/17 18:48 09/03/17 18:48 Exam Initial Vital Signs Temp Pulse Resp BP Pulse Ox 97.3 F L 85 20 125/72 93 09/03/17 18:48 09/03/17 18:48 09/03/17 18:48 09/03/17 18:48 09/03/17 18:48 Results - Labs 09/06/17 00:16 09/06/17 00:16 Abnormal lab results RBC 2.84 M/mcL (4.19-5.50) L 09/06/17 00:16 Hgb 9.8 g/dL (12.9-16.9) L 09/06/17 00:16 Hct 31.2 % (37.5-50.1) L 09/06/17 00:16 MCV 109.9 fL (83.0-100.0) H 09/06/17 00:16 MCH 34.5 pg (28.0-33.3) H 09/06/17 00:16 MCHC 31.4 g/dL (31.6-35.5) L 09/06/17 00:16 RDW 17.2 % (11.5-14.5) H 09/06/17 00:16 Nucleated RBCs/100 WBC 0.3 /100 WBC (0) H 09/04/17 04:35 PT 28.4 Seconds (9.4-12.1) H 09/06/17 00:16 ABG pH 7.25 pH Units (7.32-7.45) L 09/06/17 08:22 ABG pCO2 72 mmHg (35-45) H* 09/06/17 08:22 ABG pO2 36 mmHg (85-104) L* 09/06/17 08:22 ABG HCO3 31 mEq/L (21-27) H 09/06/17 08:22 ABG Total CO2 34 mEq/L (20-26) H 09/06/17 08:22 ABG O2 Saturation 57 % (95-98) L 09/06/17 08:22 Sodium 132 mEq/L (136-145) L 09/06/17 00:16 Chloride 95 mEq/L (98-107) L 09/06/17 00:16 Carbon Dioxide 30 mEq/L (23-29) H 09/06/17 00:16 BUN 119 mg/dL (8-23) H 09/06/17 00:16 Creatinine 3.92 mg/dL (0.70-1.30) H 09/06/17 00:16 Est GFR ( Amer) 18 (> 60) L 09/06/17 00:16 Est GFR (Non-Af Amer) 15 (> 60) L 09/06/17 00:16 BUN/Creatinine Ratio 30 (6-26) H 09/06/17 00:16 Glucose 210 mg/dL (70-105) H 09/06/17 00:16 POC Glucose 247 (58-89) H 09/05/17 19:52 Calculated Osmolality 318 (280-300) H 09/06/17 00:16 Magnesium 2.7 mg/dL (1.6-2.6) H 09/05/17 00:18 Direct Bilirubin 0.3 mg/dL (0.0-0.2) H 09/03/17 20:08 Alkaline Phosphatase 289 Units/L (34-104) H 09/03/17 20:08 Troponin I 0.05 ng/mL (< 0.04) H* 09/04/17 04:35 B-Natriuretic Peptide 531 pg/mL (Less than 100) H 09/03/17 20:08 Serum Total Protein 6.3 g/dL (6.4-8.9) L 09/03/17 20:08 Albumin 3.1 g/dL (3.5-5.7) L 09/03/17 20:08 Albumin/Globulin Ratio 1.0 (1.1-2.2) L 09/03/17 20:08 All other labs normal. - Attending Attestation I examined this patient and my medical decision-making was reviewed with the Resident Physician. I agree with the documented findings, disposition and treatment plan as described except to the extent set forth below. The patient is seen and evaluated with the resident. I spent time talking with the family and evaluate the patient. He is in very poor condition and is currently on CPAP mask to maintain oxygen saturation. He is bleeding from the urinary system as well as evidence of gastrointestinal bleeding. He has no bright red blood per rectum or hematemesis. I had a long talk with the family and I think that we should make a decision on how aggressive we would like to be before undertaking conscious sedation for endoscopy. The family agrees and would like to consider their options over the next 24 hours I think this is completely reasonable. Dexter Yung MD FACS
--- NOTE | 2017-09-06 15:47 | Nephrology Progress Note ---
Date of Encounter: 09/06/17 Time of Encounter: 13:00 - Assessment and Plan (1) Acute kidney injury Current Visit: Yes Status: Acute SCr worsening at 3.92, GFR 15 with BUN at 119 likely due to diuresis, discussed with family UOP improved, agree with holding lasix till hemodynamics improve Continue to avoid nephrotoxins if possible Family yet to decide if open to renal replacement therapy if needed Continue albumin for now (2) CKD (chronic kidney disease) stage 4, GFR 15-29 ml/min Current Visit: Yes Status: Acute Bsaeline GFr around 20s (3) Anemia Current Visit: Yes Status: Acute Hgb dropping with black stools, manaegment per primary team with transfusion pRBCs planned Qualifiers: Anemia type: unspecified type Qualified Code(s): D64.9 - Anemia, unspecified Subjective Principal diagnosis: CHF, MARTIN Interval history: Pt seen and examined with family members at bedside. Interim events noted, pt resting with biPAP in place but more arousable per family. off lasix gtt due to hypotension and per nurse to receive transfusion pRBCs today Objective - Vital Signs Vital signs: Vital Signs Temp Pulse Resp BP Pulse Ox 09/06/17 14:32 98.3 F 95 14 107/71 100 09/06/17 14:17 98.3 F 82 15 107/73 100 09/06/17 11:25 97.9 F 81 13 106/62 100 09/06/17 08:32 16 99 09/06/17 07:20 97.8 F 75 15 95/79 95 09/06/17 04:21 98.1 F 82 16 87/50 97 09/05/17 23:46 98.0 F 77 21 126/82 97 09/05/17 19:28 98.2 F 86 24 107/62 95 09/05/17 17:12 97.9 F 09/05/17 17:06 99.7 F H 09/05/17 16:32 100.8 F H 93 20 113/71 98 09/05/17 16:00 32 98 Intake and Output 09/05/17 09/06/17 09/06/17 23:59 07:59 15:59 Intake Total 100 / 100 400 / 400 414.4 / 414.4 Output Total 1750 / 1750 1969 / 1969 825 / 825 Balance -1650 / -1650 -1570 / -1570 -410.6 / -410.6 Intake: IV Fluids 100 / 100 391.4 / 391.4 0.9 % Sodium Chloride 250 ML As 150 / 150 .ROUTE .[facility] Rx#: [id number] Lasix 240 MG In Dextrose 5% 96 90.9 / 90.9 ML @ 5 MG/HR 2.5 mls/hr IVC . Q24H [facility] Rx#:[id number] Flexbumin 25 gm In 100 ml @ 60 100 / 100 100 / 100 mls/hr IVPB Q12H [facility] Rx#: [id number] AquaMephyton 5 MG In 0.9 % 50.5 / 50.5 Sodium Chloride 50 ML @ 100 mls /hr IVPB ON[facility] Rx#: [id number] Oral 400 / 400 0 / 0 Blood Product Rbcs Leuko Poor As-3 2nd Unit [id number] Output: Urine 1750 / 1750 1970 / 1970 825 / 825 Other: Intake, CBI Fluid 1,500 3,000 3,000 Meal NPO Percent of Meal Consumed 0% Output, CBI Fluid 2,200 2,825 3,150 Stool Size Large Large Stool Consistency liquid loose Stool Color Brown Brown Black # Bowel Movement Diapers 1 Weight 105.5 kg Blood Glucose* 247 194 215 Patient Weight 09/06/17 23:59 Weight 105.5 kg - General Appearance General appearance: Present: chronically ill, fatigue, frail EENT: Present: ATNC, mucous membranes dry Neck: Present: no JVD, supple Additional Comments: decreased BS bases bilat Cardiology: Present: edema, normal S1, normal S2 Gastrointestinal: Present: no tenderness, no guarding, distended (mildly but improved) Integumentary: Present: warm and dry, chronic venous stasis Neurologic: Present: no focal deficit Musculoskeletal: Present: no deformities Psychiatric: Present: cooperative - Lab 09/06/17 00:16 09/06/17 00:16 Most recent lab results ABG pH 7.25 pH Units (7.32-7.45) L 09/06/17 08:22 ABG pCO2 72 mmHg (35-45) H* 09/06/17 08:22 ABG pO2 36 mmHg (85-104) L* 09/06/17 08:22 ABG HCO3 31 mEq/L (21-27) H 09/06/17 08:22 ABG O2 Saturation 57 % (95-98) L 09/06/17 08:22 Calcium 9.2 mg/dL (8.6-10.3) 09/06/17 00:16 Phosphorus 4.2 mg/dL (2.7-4.5) 09/05/17 00:18 Magnesium 2.7 mg/dL (1.6-2.6) H 09/05/17 00:18 Consult Discharge Plan - Plan Referrals: Julio Ma MD [Primary Care Provider] - (web request sent on 09/04/17)
[2017-09-06] MEDS ORDERED: Furosemide 40 MG/4 ML VIAL ONE (16:37)
[2017-09-06] MEDS ORDERED: Furosemide 40 MG/4 ML VIAL IVP ONE (16:46)
[2017-09-06] MEDS: Pantoprazole 40 MG VIAL IVP SCH (17:11)
--- NOTE | 2017-09-06 17:35 | Internal Med Progress Note ---
Date of Encounter: 09/13/17 Time of Encounter: 17:29 - Assessment and plan (1) Black stool Status: Acute Assessment and plan: Patient is hospitalized on 09/03/2017 and was managed by another hospitalist team. Today's my first day I am encountering with the patient. Following is a summary of events which started pretty much around 7:15 AM till now. Upon reviewing of the chart it was noted that patient has a background history of diastolic heart failure with right-sided pleural effusion which was aspirated multiple times in the past. Patient also has A. fib which is rate controlled with beta blockers and anticoagulation with warfarin. Patient also has a type 2 insulin-dependent diabetes mellitus, hyperlipidemia hypertension chronic kidney disease stage IV progressing to stage V and COPD along with sleep apnea for which he is using CPAP at night. Patient also has a gout/renal stones and previous history of basal cell carcinoma. This patient was admitted for exacerbation of CHF along with worsening renal failure and persistent black stools. When I examined this patient at 7:15 in the morning, I realize patient is on a CPAP and was very difficult to arouse. During my initial examination along with me RN Jeniffer was present. She also tried to wake up the patient but after great difficulty patient barely managed to open his eyes. Respiratory therapist was called to adjust the CPAP setting and to get arterial blood gas. Patient's was at bedside and she informed that patient had a multiple episodes of black color stool last night. Arterial blood gas was suggestive of a hypercapnic respiratory failure along with a hypoxic component and the CODE STATUS in the chart was full code. I did personally spoke with the ICU attending Dr Hutchison regarding this patient. I was at bedside when Dr. brunson was evaluating the patient and was talking to family. I understood from him that he knows this patient extremely well and as per family the CODE STATUS is DNR/DNI. However ICU attending did offer transfer to ICU if patient needs procedure. Noted that patient had a drop in hemoglobin. His base line Hb 13-14 ( 05/27/16 to 06/13/2017) and this morning's hemoglobin was 9.8. Noted from the chart that stool occult was negative and patient was on omeprazole 40 mg as a GI prophylaxis. At this point patient's blood pressure was 95/79. Change in mental status, hypotension and drop in hemoglobin along with supratherapeutic INR goes in favor of gastrointestinal bleed irrespective of stool occult blood status. I discontinued Lasix drip, aspirin, omeprazole, Percocet and started patient on IV PPI 40 mg twice a day, transfusion 1 PRBC, vitamin K, endoscopic consult. I personally spoke with Dr. Yung and updated him all above. Plan was to consider upper/lower endoscopy tomorrow after initial stabilization. Patient gradually deteriorated in next 3-4 hours. During this time patient's family was at bedside. Patient's daughter was a charge nurse on this same floor (2A) and she spoke with the patient's along with other family members. Patient's and his daughter was identified as a spokesperson. In prolonged discussion for more than 15 minutes ( multiple times), I updated her family regarding all above and a plan in terms of endoscopy. Patient started gradually deteriorating around 4:45 PM in terms of saturation in spite of being on a BiPAP. Family wished to withdraw all active efforts and consider comfort care. Assessment: This patient has an event which is unknown at this time, led to a supratherapeutic INR which might have resulted into the GI bleed. GI bleed is one of the known factor for decompensation of heart failure and worsening renal function. Plan: We will change the CODE STATUS to DNR comfort care. Patient was receiving Percocet and hence given the patient is allergic to morphine, I will continue hydromorphone. I informed Dr. Ramírez who is a resident of Dr. Yung about above development. (2) Congestive heart failure Status: Acute Assessment and plan: See above Qualifiers: Congestive heart failure type: diastolic Congestive heart failure chronicity: chronic Qualified Code(s): I50.32 - Chronic diastolic (congestive ) heart failure (3) Elevated troponin Status: Acute Assessment and plan: Elevated troponin is likely secondary to demand ischemia (4) Gross hematuria Status: Acute Assessment and plan: Gross hematuria is likely secondary to supratherapeutic INR I personally discussed with the urologist can just be a reason for such a massive drop in the hemoglobin? Urologist do not feel this will be the reason for drop in the hemoglobin (5) Diabetes Status: Acute Assessment and plan: We will continue present treatment Qualifiers: Diabetes mellitus type: type 2 Diabetes mellitus complication status: with kidney complications Diabetes mellitus complication detail: with chronic kidney disease Diabetes mellitus terminal manager insulin use: with alf use Chronic kidney disease stage: stage 4 (severe) Qualified Code(s): E11.22 - Type 2 diabetes mellitus with diabetic chronic kidney disease; N18.4 - Chronic kidney disease, stage 4 (severe); N18.4 - Chronic kidney disease, stage 4 ( severe); N18.4 - Chronic kidney disease, stage 4 (severe); N18.4 - Chronic kidney disease, stage 4 (severe); Z79.4 - MCC (current) use of insulin; Z79.4 - exterminator helper (current) use of insulin; Z79.4 - MCC (current) use of insulin; Z79.4 - exterminator helper (current) use of insulin (6) Afib Status: Chronic Assessment and plan: Rate controlled Qualifiers: Atrial fibrillation type: chronic Qualified Code(s): I48.2 - Chronic atrial fibrillation - Subjective Interval history: Patient seen and examined. Chart reviewed. Patient is presently on a BiPAP and unable to get any history from him. Patient's is at bedside and she gave the most of the information regarding patient. - Constitutional Vitals: Temp Pulse Resp BP Pulse Ox 99.2 F 89 21 117/74 100 09/06/17 17:25 09/06/17 17:25 09/06/17 17:25 09/06/17 17:25 09/06/17 17:25 General appearance: Present: A&O X 1, obese, severe distress - Head Head exam: Present: atraumatic, normocephalic - Eye Eye exam: Present: PERRL, conjuntiva pink, sclera anicteric Pupils: Present: PERRL - Neck Neck exam general surgery: Present: supple, trachea midline. Absent: lymphadenopathy Additional comments: Presently on a BiPAP and unable to wake him up. - Respiratory Respiratory exam: Present: CTAB, rales. Absent: accessory muscle use, rhonchi, wheezes - Cardiovascular Cardiovascular exam: Present: RRR, +S1, +S2. Absent: diastolic murmur, gallop, rubs, systolic murmur - GI/Abdominal GI/Abdominal exam: Present: normal bowel sounds, soft, no peritoneal signs. Absent: distended, tenderness - Extremities Exam Extremities exam: Present: warm, radial pulses palpable and symmetrical. Absent : calf tenderness, cyanotic, pedal edema - Neurological Exam Neurological exam: Present: CN II-XII intact, oriented X3, no focal deficits. Absent: pronater drift, facial droop, speech deficit - Skin Skin exam: Present: dry, intact Internal Medicine: Result - Labs CBC & Chem 7: 09/08/17 04:49 09/08/17 04:49 Labs: Short CBC 09/05/17 09/06/17 Range/Units 18:05 00:16 WBC 10.2 (4.3-11.1) K/mcL Hgb 9.9 L 9.8 L (12.9-16.9) g/dL Hct 31.6 L 31.2 L (37.5-50.1) % Plt Count 150 (140-400) K/mcL Neutrophils # 8.2 (1.6-8.9) K/mcL BMP 09/06/17 00:16 Sodium 132 L Potassium 4.3 Chloride 95 L Carbon Dioxide 30 H BUN 119 H Creatinine 3.92 H Glucose 210 H Calcium 9.2 - ABG Interpretation ABG results: ABG ABG pH 7.25 pH Units (7.32-7.45) L 09/06/17 08:22 ABG pCO2 72 mmHg (35-45) H* 09/06/17 08:22 ABG pO2 36 mmHg (85-104) L* 09/06/17 08:22 ABG O2 Saturation 57 % (95-98) L 09/06/17 08:22 PT/INR, D-dimer PT 28.4 Seconds (9.4-12.1) H 09/06/17 00:16 - Impressions Impressions Pelvis CT 09/05/17 17:57 IMPRESSION: Garcia catheter and balloon within the collapsed bladder lumen. D/ / Shaquille Curtis MD / Shaquille Curtis MD Interpreting Provider: Shaquille Curtis MD Chest X-Ray 09/06/17 08:06 IMPRESSION: 1. Interface overlying the right upper hemithorax and midline upper chest which may be related to underlying soft tissue fold. 2. Worsening multifocal airspace disease as detailed above. Small bilateral pleural effusions. Mild central pulmonary vascular congestion. Stable mild cardiomegaly. Findings may represent worsening CHF related changes, but underlying multifocal infiltrate is difficult to entirely exclude. Follow-up is recommended to document resolution. D/ / Elmo Vegas MD / Elmo Vegas MD Interpreting Provider: Elmo Vegas MD Consult Discharge Plan - Plan Referrals: Julio Ma MD [Primary Care Provider] - 09/12/17 1:15 pm ( )
[2017-09-06] MEDS: Insulin DETEMIR 100 UNIT/ML X5UNITS SQ SCH (22:05)
[2017-09-07] MEDS ORDERED: Polyethylene Glycol 3350 255 GM POWDER PO ONE (00:01)
[2017-09-07] MEDS: Pantoprazole 40 MG VIAL IVP SCH ×2 (06:00→17:21)
[2017-09-07] MEDS: *HR* HYDROmorphone (PF) 1 MG/ML SYRINGE IVP PRN ×4 (06:07→17:21)
--- NOTE | 2017-09-07 08:35 | Urology Progress Note ---
Date of Encounter: 09/07/17 Time of Encounter: 08:34 - Assessment and Plan (1) Gross hematuria Current Visit: Yes Status: Acute Assessment and plan: Appears resolved at this time. I did discuss with the the possibility of removing the patient's catheter but at this point she and I would like to leave the catheter in place to allow easier management with patient's urination. (2) Rjimp-[id number] kidney injury Current Visit: Yes Status: Acute Qualifiers: Acute renal failure type: unspecified Chronic kidney disease stage: stage 4 (severe) Qualified Code(s): N17.9 - Acute kidney failure, unspecified; N18.4 - Chronic kidney disease, stage 4 (severe); N18.4 - Chronic kidney disease , stage 4 (severe); N18.4 - Chronic kidney disease, stage 4 (severe); N18.4 - Chronic kidney disease, stage 4 (severe) Progress Note Narrative: Patient seen this a.m. Patient now comfort care only. states that they have had no issues with irrigation. Objective Initial Vital Signs Temp Pulse Resp BP Pulse Ox 97.3 F L 85 20 125/72 93 09/03/17 18:48 09/03/17 18:48 09/03/17 18:48 09/03/17 18:48 09/03/17 18:48 - Abdomen Present: soft - Genitourinary Present: other (Urine clear in tubing on very slow irrigation) - Labs 09/06/17 00:16 09/06/17 00:16 Consult Discharge Plan - Plan Referrals: Julio Ma MD [Primary Care Provider] - (web request sent on 09/04/17)
[2017-09-07] MEDS: Insulin LISPRO 300 UNITS/3 ML VIAL SQ SCH ×4 (08:55→21:11)
--- NOTE | 2017-09-07 10:18 | Pulmonology Progress Note ---
Date of Encounter: 09/07/17 Time of Encounter: 07:55 Assessment and Plan (1) Acute and chronic respiratory failure ([id number]) Current Visit: Yes Status: Acute Patient is comfortable on BiPAP and discussed with the family at the bedside. Overall prognosis is poor and the family wants only comfort care. Discussed with primary team. Please call for any questions. Qualifiers: Respiratory failure complication: hypoxia and hypercapnia Qualified Code(s) : J96.21 - Acute and chronic respiratory failure with hypoxia; J96.22 - Acute and chronic respiratory failure with hypercapnia; J96.22 - Acute and chronic respiratory failure with hypercapnia; J96.22 - Acute and chronic respiratory failure with hypercapnia Subjective Principal diagnosis: CHF, MARTIN Interval history: Patient is lethargic and on BiPAP Objective PUL Vital signs: Last Vital Signs Temp 99.1 F 09/07/17 08:51 Pulse 91 09/07/17 08:51 Resp 13 09/07/17 08:51 BP 102/63 09/07/17 08:51 Pulse Ox 99 09/07/17 08:51 General appearance: no acute distress, lethargic ENT: oropharynx dry Neck: supple Effort: mildly labored Auscultation: bilateral: diminished breath sounds Percussion: bilateral: not dull Cardiovascular: irregular rhythm Gastrointestinal: normoactive bowel sounds Extremities: edema unable to assess due to mental status Results - Laboratory Findings CBC and BMP: 09/06/17 00:16 09/06/17 00:16 ABG ABG pH 7.25 pH Units (7.32-7.45) L 09/06/17 08:22 ABG pCO2 72 mmHg (35-45) H* 09/06/17 08:22 ABG pO2 36 mmHg (85-104) L* 09/06/17 08:22 ABG O2 Saturation 57 % (95-98) L 09/06/17 08:22 PT/INR, D-dimer PT 28.4 Seconds (9.4-12.1) H 09/06/17 00:16 Abnormal lab findings: Abnormal lab results RBC 2.84 M/mcL (4.19-5.50) L 09/06/17 00:16 Hgb 9.8 g/dL (12.9-16.9) L 09/06/17 00:16 Hct 31.2 % (37.5-50.1) L 09/06/17 00:16 MCV 109.9 fL (83.0-100.0) H 09/06/17 00:16 MCH 34.5 pg (28.0-33.3) H 09/06/17 00:16 MCHC 31.4 g/dL (31.6-35.5) L 09/06/17 00:16 RDW 17.2 % (11.5-14.5) H 09/06/17 00:16 Nucleated RBCs/100 WBC 0.3 /100 WBC (0) H 09/04/17 04:35 PT 28.4 Seconds (9.4-12.1) H 09/06/17 00:16 ABG pH 7.25 pH Units (7.32-7.45) L 09/06/17 08:22 ABG pCO2 72 mmHg (35-45) H* 09/06/17 08:22 ABG pO2 36 mmHg (85-104) L* 09/06/17 08:22 ABG HCO3 31 mEq/L (21-27) H 09/06/17 08:22 ABG Total CO2 34 mEq/L (20-26) H 09/06/17 08:22 ABG O2 Saturation 57 % (95-98) L 09/06/17 08:22 Sodium 132 mEq/L (136-145) L 09/06/17 00:16 Chloride 95 mEq/L (98-107) L 09/06/17 00:16 Carbon Dioxide 30 mEq/L (23-29) H 09/06/17 00:16 BUN 119 mg/dL (8-23) H 09/06/17 00:16 Creatinine 3.92 mg/dL (0.70-1.30) H 09/06/17 00:16 Est GFR ( Amer) 18 (> 60) L 09/06/17 00:16 Est GFR (Non-Af Amer) 15 (> 60) L 09/06/17 00:16 BUN/Creatinine Ratio 30 (6-26) H 09/06/17 00:16 Glucose 210 mg/dL (70-105) H 09/06/17 00:16 POC Glucose 247 (58-89) H 09/05/17 19:52 Calculated Osmolality 318 (280-300) H 09/06/17 00:16 Magnesium 2.7 mg/dL (1.6-2.6) H 09/05/17 00:18 Direct Bilirubin 0.3 mg/dL (0.0-0.2) H 09/03/17 20:08 Alkaline Phosphatase 289 Units/L (34-104) H 09/03/17 20:08 Troponin I 0.05 ng/mL (< 0.04) H* 09/04/17 04:35 B-Natriuretic Peptide 531 pg/mL (Less than 100) H 09/03/17 20:08 Serum Total Protein 6.3 g/dL (6.4-8.9) L 09/03/17 20:08 Albumin 3.1 g/dL (3.5-5.7) L 09/03/17 20:08 Albumin/Globulin Ratio 1.0 (1.1-2.2) L 09/03/17 20:08 - Clinical Findings Intake & Output: Intake & Output 09/06/17 09/07/17 09/07/17 23:59 07:59 15:59 Intake Total 276 / 276 Output Total 875 / 875 825 / 825 Balance -599 / -599 -825 / -825 Weight 105.4 kg Consult Discharge Plan - Plan Referrals: Julio Ma MD [Primary Care Provider] - (web request sent on 09/04/17)
--- NOTE | 2017-09-07 13:24 | General Surgery Progress Note ---
<Lisbeth Tavera - Last Filed: 09/07/17 13:20> Date of Encounter: 09/07/17 Time of Encounter: 13:20 - Assessment and Plan (1) Black stool Current Visit: Yes Status: Acute We were informed that the patient's family has decided to change his code status to DNR-CC after a through family discussion with the primary hospitalist team. They want to do comfort measures only and no longer pursue an endoscopy. Surgery will be signing off now since we are no longer required. 09/06/2016 The patient and family reports occasional black stools. Hgb is 9.8 but has been trending down from 11.1 at admission Patient has been on warfarin for A. fib, which has been stopped at this admission. May perform EGD/ colonoscopy to investigate the cause of potential GI bleed The patient is hemodynamically stable. There is blood in koch catheter but no other obvious source of bleeding. recommend reversing INR to normal levels continue to monitor Hgb and INR will monitor the patient for hemorrhaging will re-evaluate patient tomorrow (2) Afib Current Visit: Yes Status: Chronic patient has a.fib and taking warfarin for anticoagulation. Warfarin has been stopped due to Hgb trending down and concern for GI bleed Qualifiers: Atrial fibrillation type: chronic Qualified Code(s): I48.2 - Chronic atrial fibrillation (3) Diastolic heart failure Current Visit: Yes Status: Acute admitted and being treated for diastolic heart failure Qualifiers: Heart failure chronicity: acute on chronic Qualified Code(s): I50.33 - Acute on chronic diastolic (congestive) heart failure Objective Vital Signs - Last 8 Hours Temp Pulse Resp BP Pulse Ox 09/07/17 11:39 99.2 F 81 13 112/69 100 09/07/17 08:51 99.1 F 91 13 102/63 99 Intake and Output 09/06/17 09/07/17 09/07/17 23:59 07:59 15:59 Intake Total 276 / 276 Output Total 875 / 875 825 / 825 Balance -599 / -599 -825 / -825 Intake: Oral 0 / 0 Blood Product 276 / 276 Rbcs Leuko Poor As-3 2nd Unit 276 / 276 [id number] Output: Urine 275 / 275 825 / 825 Catheter 600 / 600 Other: Intake, CBI Fluid 3,000 3,000 Output, CBI Fluid 3,275 3,525 Weight 105.4 kg Blood Glucose* 157 152 Patient Weight 09/07/17 23:59 Weight 105.4 kg - Labs 09/06/17 00:16 09/06/17 00:16 Consult Discharge Plan - Plan Referrals: Julio Ma MD [Primary Care Provider] - (web request sent on 09/04/17) <Dexter Yung - Last Filed: 09/07/17 14:57> Date of Encounter: 09/07/17 Objective Vital Signs - Last 8 Hours Temp Pulse Resp BP Pulse Ox 09/07/17 11:39 99.2 F 81 13 112/69 100 09/07/17 08:51 99.1 F 91 13 102/63 99 Intake and Output 09/06/17 09/07/17 09/07/17 23:59 07:59 15:59 Intake Total 276 / 276 Output Total 875 / 875 825 / 825 Balance -599 / -599 -825 / -825 Intake: Oral 0 / 0 Blood Product 276 / 276 Rbcs Leuko Poor As-3 2nd Unit 276 / 276 [id number] Output: Urine 275 / 275 825 / 825 Catheter 600 / 600 Other: Intake, CBI Fluid 3,000 3,000 Output, CBI Fluid 3,275 3,525 Stool Size Large Stool Consistency liquid Stool Color Black # Bowel Movement Diapers 1 Weight 105.4 kg Blood Glucose* 157 152 Patient Weight 09/07/17 23:59 Weight 105.4 kg - Labs 09/06/17 00:16 09/06/17 00:16 - Attending Attestation I examined this patient and my medical decision-making was reviewed with the Resident Physician. I agree with the documented findings, disposition and treatment plan as described except to the extent set forth below. Patient seen and evaluated morning rounds with the resident. The family has decided to not proceed with endoscopy. We will sign off at this point. Dexter Yung MD FACS
--- NOTE | 2017-09-07 14:23 | Event Note ---
Date of Encounter: 09/07/17 Time of Encounter: 13:00 Interim events noted, pt now comfort care only per family discussions. No new labs available. Will signoff, please reconsult prn
--- NOTE | 2017-09-07 18:03 | Internal Med Progress Note ---
Date of Encounter: 09/08/17 Time of Encounter: 18:00 - Assessment and plan (1) Black stool Current Visit: Yes Status: Acute Assessment and plan: Patient is hospitalized on 09/03/2017 and was managed by another hospitalist team. Today's my first day I am encountering with the patient. Following is a summary of events which started pretty much around 7:15 AM till now. Upon reviewing of the chart it was noted that patient has a background history of diastolic heart failure with right-sided pleural effusion which was aspirated multiple times in the past. Patient also has A. fib which is rate controlled with beta blockers and anticoagulation with warfarin. Patient also has a type 2 insulin-dependent diabetes mellitus, hyperlipidemia hypertension chronic kidney disease stage IV progressing to stage V and COPD along with sleep apnea for which he is using CPAP at night. Patient also has a gout/renal stones and previous history of basal cell carcinoma. This patient was admitted for exacerbation of CHF along with worsening renal failure and persistent black stools. When I examined this patient at 7:15 in the morning, I realize patient is on a CPAP and was very difficult to arouse. During my initial examination along with me RN Jeniffer was present. She also tried to wake up the patient but after great difficulty patient barely managed to open his eyes. Respiratory therapist was called to adjust the CPAP setting and to get arterial blood gas. Patient's was at bedside and she informed that patient had a multiple episodes of black color stool last night. Arterial blood gas was suggestive of a hypercapnic respiratory failure along with a hypoxic component and the CODE STATUS in the chart was full code. I did personally spoke with the ICU attending Dr Hutchison regarding this patient. I was at bedside when Dr. brunson was evaluating the patient and was talking to family. I understood from him that he knows this patient extremely well and as per family the CODE STATUS is DNR/DNI. However ICU attending did offer transfer to ICU if patient needs procedure. Noted that patient had a drop in hemoglobin. His base line Hb 13-14 ( 05/27/16 to 06/13/2017) and this morning's hemoglobin was 9.8. Noted from the chart that stool occult was negative and patient was on omeprazole 40 mg as a GI prophylaxis. At this point patient's blood pressure was 95/79. Change in mental status, hypotension and drop in hemoglobin along with supratherapeutic INR goes in favor of gastrointestinal bleed irrespective of stool occult blood status. I discontinued Lasix drip, aspirin, omeprazole, Percocet and started patient on IV PPI 40 mg twice a day, transfusion 1 PRBC, vitamin K, endoscopic consult. I personally spoke with Dr. Yung and updated him all above. Plan was to consider upper/lower endoscopy tomorrow after initial stabilization. Patient gradually deteriorated in next 3-4 hours. During this time patient's family was at bedside. Patient's daughter was a charge nurse on this same floor (2A) and she spoke with the patient's along with other family members. Patient's and his daughter was identified as a spokesperson. In prolonged discussion for more than 15 minutes ( multiple times), I updated her family regarding all above and a plan in terms of endoscopy. Patient started gradually deteriorating around 4:45 PM in terms of saturation in spite of being on a BiPAP. Family wished to withdraw all active efforts and consider comfort care. Assessment: This patient has an event which is unknown at this time, led to a supratherapeutic INR which might have resulted into the GI bleed. GI bleed is one of the known factor for decompensation of heart failure and worsening renal function. Plan: We will change the CODE STATUS to DNR comfort care. Patient was receiving Percocet and hence given the patient is allergic to morphine, I will continue hydromorphone. I informed Dr. Ramírez who is a resident of Dr. Yung about above development. 09/07/2017. Patient is comfortably lying in the bed. Patient does not appear to be in no pain or discomfort. Family is at bedside and requesting to continue same treatment. Family has not changed their mind and would like to still continue DNR with comfort care. Patient's daughter requested labs for tomorrow morning. We will be calling palliative care hospice tomorrow morning for further evaluation Input from surgery/nephrology/pulmonology appreciated (2) Congestive heart failure Current Visit: Yes Status: Acute Assessment and plan: See above Qualifiers: Congestive heart failure type: diastolic Congestive heart failure chronicity: acute on chronic Qualified Code(s): I50.33 - Acute on chronic diastolic (congestive) heart failure (3) Elevated troponin Current Visit: Yes Status: Acute Assessment and plan: Elevated troponin is likely secondary to demand ischemia (4) Gross hematuria Current Visit: Yes Status: Acute Assessment and plan: Gross hematuria is likely secondary to supratherapeutic INR I personally discussed with the urologist can just be a reason for such a massive drop in the hemoglobin? Urologist do not feel this will be the reason for drop in the hemoglobin (5) Diabetes Current Visit: No Status: Acute Assessment and plan: We will continue present treatment Qualifiers: Diabetes mellitus type: type 2 Diabetes mellitus complication status: with kidney complications Diabetes mellitus complication detail: with chronic kidney disease Diabetes mellitus truck terminal manager insulin use: with truck terminal manager use Chronic kidney disease stage: stage 4 (severe) Qualified Code(s): E11.22 - Type 2 diabetes mellitus with diabetic chronic kidney disease; N18.4 - Chronic kidney disease, stage 4 (severe); N18.4 - Chronic kidney disease, stage 4 ( severe); N18.4 - Chronic kidney disease, stage 4 (severe); N18.4 - Chronic kidney disease, stage 4 (severe); Z79.4 - truck terminal manager (current) use of insulin; Z79.4 - truck terminal manager (current) use of insulin; Z79.4 - nursing home (current) use of insulin; Z79.4 - truck terminal manager (current) use of insulin (6) Afib Current Visit: Yes Status: Chronic Assessment and plan: Rate controlled Qualifiers: Atrial fibrillation type: chronic Qualified Code(s): I48.2 - Chronic atrial fibrillation - Subjective Interval history: Patient seen and examined. Chart reviewed. Patient is presently on a BiPAP and unable to get any history from him. Patient's is at bedside and she gave the most of the information regarding patient. 09/07/2017. Patient seen and examined. Chart reviewed. Patient is comfortably lying in bed. Patient's family is at bedside. Patient appears not to be in any pain or discomfort. - Constitutional Vitals: Temp Pulse Resp BP Pulse Ox 98.4 F 92 12 90/54 99 09/07/17 16:21 09/07/17 16:21 09/07/17 16:21 09/07/17 16:21 09/07/17 16:21 General appearance: Present: A&O X 1, obese, severe distress - Head Head exam: Present: atraumatic, normocephalic - Eye Eye exam: Present: PERRL, conjuntiva pink, sclera anicteric Pupils: Present: PERRL - Neck Neck exam general surgery: Present: supple, trachea midline. Absent: lymphadenopathy - Respiratory Respiratory exam: Present: CTAB. Absent: accessory muscle use, rales, rhonchi, wheezes - Cardiovascular Cardiovascular exam: Present: RRR, +S1, +S2. Absent: diastolic murmur, gallop, rubs, systolic murmur - GI/Abdominal GI/Abdominal exam: Present: normal bowel sounds, soft, no peritoneal signs. Absent: distended, tenderness - Extremities Exam Extremities exam: Present: warm, radial pulses palpable and symmetrical. Absent : calf tenderness, cyanotic, pedal edema - Neurological Exam Neurological exam: Present: CN II-XII intact, oriented X3, no focal deficits. Absent: pronater drift, facial droop, speech deficit - Skin Skin exam: Present: dry, intact Internal Medicine: Result - Labs CBC & Chem 7: 09/08/17 04:49 09/08/17 04:49 - ABG Interpretation ABG results: ABG ABG pH 7.25 pH Units (7.32-7.45) L 09/06/17 08:22 ABG pCO2 72 mmHg (35-45) H* 09/06/17 08:22 ABG pO2 36 mmHg (85-104) L* 09/06/17 08:22 ABG O2 Saturation 57 % (95-98) L 09/06/17 08:22 PT/INR, D-dimer PT 28.4 Seconds (9.4-12.1) H 09/06/17 00:16 Consult Discharge Plan - Plan Referrals: Julio Ma MD [Primary Care Provider] - (web request sent on 09/04/17)
[2017-09-07] MEDS: Insulin DETEMIR 100 UNIT/ML X5UNITS SQ SCH (21:12)
[2017-09-07] MEDS: Albumin 25% 25gram/100mL 25 GM/100 ML IV.SOLN IVPB SCH (21:57)
[2017-09-08] MEDS: *HR* HYDROmorphone (PF) 1 MG/ML SYRINGE IVP PRN ×2 (01:39→10:04)
[2017-09-08 05:39] LABS: Basophils % 0.1 %; Eosinophils # 0.1 K/mcL (0.0-0.6); Eosinophils % 0.5 %; Hematocrit 32.1 % (37.5-50.1); Hemoglobin 10.2 g/dL (12.9-16.9); Immature Granulocytes % 0.7 % (0-4); Lymphocytes # 0.6 K/mcL (0.6-4.6); Lymphocytes % 4.3 %; Mean Corpuscular HGB Conc 31.8 g/dL (31.6-35.5); Mean Corpuscular Hemoglobin 33.8 pg (28.0-33.3); Mean Corpuscular Volume 106.3 fL (83.0-100.0); Mean Platelet Volume 11.7 fL (9.4-12.4); Monocytes # 0.9 K/mcL (0.0-1.3); Monocytes % 6.3 %; Neutrophils # 12.8 K/mcL (1.6-8.9); Platelet Count 154 K/mcL (140-400); Red Blood Count 3.02 M/mcL (4.19-5.50); Red Cell Distribution Width 18.1 % (11.5-14.5); Segmented Neutrophils % 88.1 %
[2017-09-08 05:50] LABS: Blood Urea Nitrogen > 130 mg/dL (8-23); Calcium 9.3 mg/dL (8.6-10.3); Carbon Dioxide 27 mEq/L (23-29); Chloride 96 mEq/L (98-107); Glucose 165 mg/dL (70-105); Potassium 4.5 mEq/L (3.5-5.1); Sodium 133 mEq/L (136-145); eGFR For African Americans 12 (> 60); eGFR For Non-African Americans 10 (> 60)
[2017-09-08] MEDS: Pantoprazole 40 MG VIAL IVP SCH (05:56)
[2017-09-08] MEDS: Insulin LISPRO 300 UNITS/3 ML VIAL SQ SCH ×2 (08:41→12:57)
[2017-09-08 11:33] VITALS: BP 92/56
--- NOTE | 2017-09-08 11:44 | Discharge Summary ---
Date of Encounter: 09/08/17 Time of Encounter: 11:42 - Discharge Diagnosis (1) Black stool Priority: Primary Status: Acute (2) Congestive heart failure Priority: Primary Status: Acute Qualifiers: Congestive heart failure type: diastolic Congestive heart failure chronicity: acute on chronic Qualified Code(s): I50.33 - Acute on chronic diastolic (congestive) heart failure (3) Elevated troponin Priority: Primary Status: Acute (4) Gross hematuria Priority: Primary Status: Acute (5) Diabetes Priority: Secondary Status: Acute Qualifiers: Diabetes mellitus type: type 2 Diabetes mellitus complication status: with kidney complications Diabetes mellitus complication detail: with chronic kidney disease Diabetes mellitus smutter insulin use: with smutter use Chronic kidney disease stage: stage 4 (severe) Qualified Code(s): E11.22 - Type 2 diabetes mellitus with diabetic chronic kidney disease; N18.4 - Chronic kidney disease, stage 4 (severe); N18.4 - Chronic kidney disease, stage 4 ( severe); N18.4 - Chronic kidney disease, stage 4 (severe); N18.4 - Chronic kidney disease, stage 4 (severe); Z79.4 - [facility] (current) use of insulin; Z79.4 - [facility] (current) use of insulin; Z79.4 - [facility] (current) use of insulin; Z79.4 - [facility] (current) use of insulin (6) Afib Priority: Secondary Status: Chronic Qualifiers: Atrial fibrillation type: chronic Qualified Code(s): I48.2 - Chronic atrial fibrillation - Discharge Medications Home Medications: Allopurinol [Zyloprim 300 MG] 300 mg PO DAILY 01/21/16 [History] Aspirin 81 mg PO DAILY 01/21/16 [History] Insulin Glargine [Lantus] 0 - 10 units SQ HS 01/21/16 [History] Warfarin [Coumadin] 5 mg PO MOWEFR 01/21/16 [History] cloNIDine HCl [CloNIDine HCl] 0.1 mg PO BID PRN 01/21/16 [History] Carvedilol [Coreg] 6.25 mg PO BID 08/19/17 [History] Insulin LISPRO [Humalog Kwikpen U-100] 0 unit SQ TIDAC PRN 09/03/17 [History] Lisinopril [Zestril] 40 mg PO DAILY 09/03/17 [History] Oxygen 2.5 l NS AD 09/03/17 [History] Warfarin [Coumadin] 2.5 mg PO SUTUTHSA 09/03/17 [History] Allergies/Adverse Reactions: 3 Allergy/AdvReac Type Severity Reaction Status Date / Time metoprolol [From Toprol XL] Allergy Difficulty Verified 08/19/17 12:50 Breathing morphine Allergy Difficulty Verified 08/19/17 12:50 Breathing Procedures/tests Complete & Pending: Procedures Performed prior 72 hours Category Date Time Status CT pelvis wo no iv no oral [CT] Stat Cat Scan 09/05/17 17:57 Completed Date of admission: 09/04/17 03:06 Primary care physician: Julio Ma MD Consults: 09/04/17 13:10 Consult to Cardiology [CONS] Routine Comment: Consulting Provider: Cardiology [place] Reason for Consult: acute diastolic exacerbation. Call Completed: No Consult to Nephrology [CONS] Routine Consulting Provider: Kidney [place]/GERRI/ANNA/MADINA Reason for Consult: MARTIN Call Completed: Yes 09/04/17 14:30 Consult to Wound Care [CONS] Routine Reason for Consult: Bilateral leg blisters r/t edema Time Notified: 14:30 Call Completed: Yes 09/05/17 17:14 Consult to Urology [CONS] Routine Consulting Provider: Urology [place] Reason for Consult: gross hematuria Call Completed: Yes 09/06/17 09:36 Consult to Pulmonology [CONS] Routine Consulting Provider: Pulm Crit Care & Sleep [place] Reason for Consult: Hypoxic respiratory failure Call Completed: Yes 09/06/17 11:51 Consult to Surgery [CONS] Routine Consulting Provider: Surgery [facility] Reason for Consult: ?GI bleed Call Completed: Yes Discharging clinician: Theron Sr - Patient Status Disposition: Hospice - Medical Facility Condition: Fair Functional capacity at discharge: bed bound Overall status at discharge: patient is not back to baseline - Discharge Instructions Follow Up With: Julio Ma MD [Primary Care Provider] - (web request sent on 09/04/17) - Diet and Activity Activity: other Diet: other Interval History: Mr. Marin is a 86 year old male with a past medical history of diastolic CHF and a right pleural effusion that required thoracenteses back in August, interrelation on Coumadin, diabetes type 2 insulin-dependent, chronic kidney disease stage IV, chronic respiratory failure using 2 L at home. The patient came complaining of severe shortness of breath and lower extremity edema, he has gained 7 pounds despite being on Lasix 40 mg 3 times a day at home. Chest x -ray shows pulmonary edema and possible bilateral opacities more on the right than the left, no symptoms of pneumonia. Troponin 0.04 BNP is 531 glucose 281 his creatinine was 2.81 and has increased to 3.73. INR is 3.1 heart rate 94 blood pressure 142/85. The patient received a dose of Lasix IV at the emergency room. Hospital course: This is summary of my note since when I started taking care of the patient: 09/06/2017 Patient is hospitalized on 09/03/2017 and was managed by another hospitalist team. Following is a summary of events which started pretty much around 7:15 AM till now. Upon reviewing of the chart it was noted that patient has a background history of diastolic heart failure with right-sided pleural effusion which was aspirated multiple times in the past. Patient also has A. fib which is rate controlled with beta blockers and anticoagulation with warfarin. Patient also has a type 2 insulin-dependent diabetes mellitus, hyperlipidemia hypertension chronic kidney disease stage IV progressing to stage V and COPD along with sleep apnea for which he is using CPAP at night. Patient also has a gout/renal stones and previous history of basal cell carcinoma. This patient was admitted for exacerbation of CHF along with worsening renal failure and persistent black stools. When I examined this patient at 7:15 in the morning, I realize patient is on a CPAP and was very difficult to arouse. During my initial examination along with me RN Jeniffer was present. She also tried to wake up the patient but after great difficulty patient barely managed to open his eyes. Respiratory therapist was called to adjust the CPAP setting and to get arterial blood gas. Patient's was at bedside and she informed that patient had a multiple episodes of black color stool last night. Arterial blood gas was suggestive of a hypercapnic respiratory failure along with a hypoxic component and the CODE STATUS in the chart was full code. I did personally spoke with the ICU attending Dr Hutchison regarding this patient. I was at bedside when Dr. brunson was evaluating the patient and was talking to family. I understood from him that he knows this patient extremely well and as per family the CODE STATUS is DNR/DNI. However ICU attending did offer transfer to ICU if patient needs procedure. Noted that patient had a drop in hemoglobin. His base line Hb 13-14 ( 05/27/16 to 06/13/2017) and this morning's hemoglobin was 9.8. Noted from the chart that stool occult was negative and patient was on omeprazole 40 mg as a GI prophylaxis. At this point patient's blood pressure was 95/79. Change in mental status, hypotension and drop in hemoglobin along with supratherapeutic INR goes in favor of gastrointestinal bleed irrespective of stool occult blood status. I discontinued Lasix drip, aspirin, omeprazole, Percocet and started patient on IV PPI 40 mg twice a day, transfusion 1 PRBC, vitamin K, endoscopic consult. I personally spoke with Dr. Yung and updated him all above. Plan was to consider upper/lower endoscopy tomorrow after initial stabilization. Patient gradually deteriorated in next 3-4 hours. During this time patient's family was at bedside. Patient's daughter was a charge nurse on this same floor (2A) and she spoke with the patient's along with other family members. Patient's and his daughter was identified as a spokesperson. In prolonged discussion for more than 15 minutes ( multiple times), I updated her family regarding all above and a plan in terms of endoscopy. Patient started gradually deteriorating around 4:45 PM in terms of saturation in spite of being on a BiPAP. Family wished to withdraw all active efforts and consider comfort care. Assessment: This patient has an event which is unknown at this time, led to a supratherapeutic INR which might have resulted into the GI bleed. GI bleed is one of the known factor for decompensation of heart failure and worsening renal function. Plan: We will change the CODE STATUS to DNR comfort care. Patient was receiving Percocet and hence given the patient is allergic to morphine, I will continue hydromorphone. 09/07/2017 Patient is comfortably lying in the bed. Patient does not appear to be in no pain or discomfort. Family is at bedside and requesting to continue same treatment. Family has not changed their mind and would like to still continue DNR with comfort care. Patient's daughter requested labs for tomorrow morning. We will be calling palliative care hospice tomorrow morning for further evaluation Input from surgery/nephrology/pulmonology appreciated 09/08/2017 Patient seen and examined. Chart reviewed. Noted that family had a long discussion with the palliative and hospice. Family agreed with the GIP bed. I will discharge patient and palliative team to take over. - Time Spent with Patient Total time spent providing and/or coordinating discharge services: - Constitutional Vitals: Temp Pulse Resp BP Pulse Ox 98.6 F 91 19 92/56 97 09/08/17 11:30 09/08/17 11:30 09/08/17 11:30 09/08/17 11:30 09/08/17 11:30 General appearance: Present: A&O X 1, obese, severe distress - Head Head exam: Present: atraumatic, normocephalic - Eye Eye exam: Present: PERRL, conjuntiva pink, sclera anicteric Pupils: Present: PERRL - Neck Neck exam general surgery: Present: supple, trachea midline. Absent: lymphadenopathy - Respiratory Respiratory exam: Present: CTAB. Absent: accessory muscle use, rales, rhonchi, wheezes - Cardiovascular Cardiovascular exam: Present: RRR, +S1, +S2. Absent: diastolic murmur, gallop, rubs, systolic murmur - GI/Abdominal GI/Abdominal exam: Present: normal bowel sounds, soft, no peritoneal signs. Absent: distended, tenderness - Extremities Exam Extremities exam: Present: warm, radial pulses palpable and symmetrical. Absent : calf tenderness, cyanotic, pedal edema - Neurological Exam Neurological exam: Present: CN II-XII intact, oriented X3, no focal deficits. Absent: pronater drift, facial droop, speech deficit - Skin Skin exam: Present: dry, intact - VTE Documentation of Mechanical Device: Intermittent pneumatic compression device
--- NOTE | 2017-09-08 12:39 | Palliative - Consult Note ---
Date of Encounter: 09/08/17 Time of Encounter: 10:15 - Assessment and Plan (1) Goals of care, counseling/discussion Current Visit: Yes Status: Acute Assessment and plan: the patient is alreadycomfort care, goal is to transition to hospice today, BiPAP withdrawal in the Morning or when the family is ready (2) Acute and chronic respiratory failure ([id number]) Current Visit: Yes Status: Acute Assessment and plan: currently on BiPAP, this romy be withdrawn tomorrow Qualifiers: Respiratory failure complication: hypoxia and hypercapnia Qualified Code(s) : J96.21 - Acute and chronic respiratory failure with hypoxia; J96.22 - Acute and chronic respiratory failure with hypercapnia; J96.22 - Acute and chronic respiratory failure with hypercapnia; J96.22 - Acute and chronic respiratory failure with hypercapnia (3) Black stool Current Visit: Yes Status: Acute Assessment and plan: amily requests no further w (4) Dyspnea Current Visit: No Status: Acute Assessment and plan: biPAP withdrawal tomorrow, medications Written for Qualifiers: Dyspnea type: dyspnea on exertion Qualified Code(s): R06.09 - Other forms of dyspnea Palliative-CN HPI - Data of Consult Patient: new to practice Requesting Physician: Samuel Dobbins Primary Care Provider: Julio Ma MD - Consult Narrative Palliative Care/Comfort Measures: Palliative care Reason for consult: transition to hospice care History of present illness: Mr. Marin is a 86 year old male presents withhortness of breath for 3 months this has been more noticeable for last 2 weeks, with increasingexercise intolerance increasing oxygen useincreasing shortness of breath. The patient was admitted ancongestive heart failure as well gross hematuia and a GI bleed. the patient has chronic kidney failure now iwith acute on chronic kidney failur He does not wish to have dialysis. The patient also has respiratory failure for which he is BiPAP dependent. Family has decided not to work up a GI bleed,and not toave any dialysis. They would like to withdraw the BiPAP, and for that reason palliative was consulted. The patient is in no stress at this time. He is non-verbal. pleasesee the assessment and plan. 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 Brand cyst, nephrolithiasis, hypertension) Psychiatric history: no psych history - Past Surgical History Surgical History: orthopedic, other, other (Thoracentesis in August 192016 removing 1250 mL from the right lung, lithotripsy, carpal tunnel syndrome surgery, TURP, cataracts, Mohs surgery due to BCC) - Social History Smoking Status: Never smoker Smokeless Tobacco Status: No Alcohol use: none Drug use: none - Family History Daughter Adopted: [place]: ashia Living Status: Still Living Father Name: Peterson Family Member Ethnicity: Non- Living Status: Age at : 85 Cause of : CHF Hx Family Cardiac Disorders: Yes Medications and Allergies Allopurinol [Zyloprim 300 MG] 300 mg PO DAILY 01/21/16 [History] Aspirin 81 mg PO DAILY 01/21/16 [History] Insulin Glargine [Lantus] 0 - 10 units SQ HS 01/21/16 [History] Warfarin [Coumadin] 5 mg PO MOWEFR 01/21/16 [History] cloNIDine HCl [CloNIDine HCl] 0.1 mg PO BID PRN 01/21/16 [History] Carvedilol [Coreg] 6.25 mg PO BID 08/19/17 [History] Insulin LISPRO [Humalog Kwikpen U-100] 0 unit SQ TIDAC PRN 09/03/17 [History] Lisinopril [Zestril] 40 mg PO DAILY 09/03/17 [History] Oxygen 2.5 l NS AD 09/03/17 [History] Warfarin [Coumadin] 2.5 mg PO SUTUTHSA 09/03/17 [History] 3 Allergy/AdvReac Type Severity Reaction Status Date / Time metoprolol [From Toprol XL] Allergy Difficulty Verified 08/19/17 12:50 Breathing morphine Allergy Difficulty Verified 08/19/17 12:50 Breathing ROS unobtainable: due to mental status Palliative Care-Exam - Constitutional Vitals: Temp Pulse Resp BP Pulse Ox 98.6 F 91 19 92/56 97 09/08/17 11:30 09/08/17 11:30 09/08/17 11:30 09/08/17 11:30 09/08/17 11:30 General appearance: Present: no acute distress - Head Head Exam: Present: atraumatic, normal inspection - Eye Eye exam: Present: normal appearance - ENT ENT exam: Present: mucous membranes moist - Respiratory Respiratory exam: Present: decreased breath sounds - Cardiovascular Cardiovascular exam: Present: irregular rhythm - GI/Abdominal Exam GI/Abdominal exam: Present: normal bowel sounds, soft. Absent: tenderness - Extremities Exam Extremities exam: Present: pedal edema. Absent: normal inspection, tenderness - Neurological Exam Neurological exam: Present: altered - Psychiatric Psychiatric exam: Absent: agitated, anxious - Skin Skin exam: Present: dry, warm Internal Medicine - CN: Reslt - Labs CBC & Chem 7: 09/08/17 04:49 09/08/17 04:49 Labs: Short CBC 09/08/17 Range/Units 04:49 WBC 14.6 H (4.3-11.1) K/mcL Hgb 10.2 L (12.9-16.9) g/dL Hct 32.1 L (37.5-50.1) % Plt Count 154 (140-400) K/mcL Neutrophils # 12.8 H (1.6-8.9) K/mcL BMP 09/08/17 04:49 Sodium 133 L Potassium 4.5 Chloride 96 L Carbon Dioxide 27 BUN > 130 H Creatinine 5.46 H Glucose 165 H Calcium 9.3 - ABG Interpretation ABG results: ABG ABG pH 7.25 pH Units (7.32-7.45) L 09/06/17 08:22 ABG pCO2 72 mmHg (35-45) H* 09/06/17 08:22 ABG pO2 36 mmHg (85-104) L* 09/06/17 08:22 ABG O2 Saturation 57 % (95-98) L 09/06/17 08:22 PT/INR, D-dimer PT 28.4 Seconds (9.4-12.1) H 09/06/17 00:16 Consult Discharge Plan - Plan Referrals: Julio Ma MD [Primary Care Provider] - 09/12/17 1:15 pm ( ) Palliative Quality Palliative Quality: Screen for Code Status: Yes, Screen for Goals of Care: Yes, Screen for Pain: Yes, If Pain Regimen Started, Initiate Bowel Regimen: Yes, Screen for Nausea/Vomitting: Yes Code Status: 09/04/17 01:32 Resuscitation Status: Active [RES] Routine Comment: Resuscitation Status: [id number] 09/06/17 17:18 CODE [Resuscitation Status: Active] [RES] Routine Comment: Resuscitation Status: DNR-Comfort Care
== END 2017-09-08 13:17 | disposition hospice, inpatient (51) | DRG 291 ==
LOC: EMEROO 18:48 → 2ANU 18:48 → SUATTDRO 09-04 03:06
PROVIDERS: ADMIT Internal Medicine; ATTEND Internal Medicine

== ENCOUNTER 2017-09-08 11:34 | Inpatient (IN) ==
[2017-09-08] MEDS ORDERED: Haloperidol Lactate 5 MG/ML VIAL IVP PRN (12:12)
[2017-09-08] MEDS ORDERED: *HR* HYDROmorphone (PF) 1 MG/ML SYRINGE IVP PRN (12:12)
[2017-09-08] MEDS ORDERED: Acetaminophen 650 MG RECTAL SUPP RC PRN (12:12)
[2017-09-08] MEDS ORDERED: Haloperidol Lactate 5 MG/ML VIAL IVP ONE (12:12)
[2017-09-08] MEDS ORDERED: Albuterol 2.5 MG/3 ML NEBULIZER IH PRN (12:12)
[2017-09-08] MEDS ORDERED: Ondansetron 4 MG/2 ML VIAL IVP PRN (12:12)
[2017-09-08] MEDS ORDERED: Atropine Sulfate 1% 40 DROP/2 ML BOTTLE SL PRN (12:12)
[2017-09-08] MEDS ORDERED: *HR* LORazepam 2 MG/ML VIAL IVP PRN (12:12)
[2017-09-08] MEDS ORDERED: *HR* HYDROmorphone (PF) 1 MG/ML SYRINGE IVP ONE (12:12)
[2017-09-08] MEDS ORDERED: *HR* LORazepam 2 MG/ML VIAL IVP ONE (12:28)
--- NOTE | 2017-09-08 12:44 | Pallative History & Physical ---
Date of Encounter: 09/08/17 Time of Encounter: 10:15 Assessment and Plan (1) Acute and chronic respiratory failure ([id number]) Status: Acute the patient is currently on BiPAP, but this will be withdrawn at family [facility] tomorrow Qualifiers: Respiratory failure complication: hypoxia and hypercapnia Qualified Code(s) : J96.21 - Acute and chronic respiratory failure with hypoxia; J96.22 - Acute and chronic respiratory failure with hypercapnia; J96.22 - Acute and chronic respiratory failure with hypercapnia; J96.22 - Acute and chronic respiratory failure with hypercapnia (2) Black stool Status: Acute GI bleed, family has declined workup. (3) Goals of care, counseling/discussion Status: Acute dNR CC, internal inpatient hospice forntrol as the IPAP is withdraent nd the patient is in renal failure (4) Dyspnea Status: Acute BiPAP withdrawal tomorrow, medications for shortness of reath written for Qualifiers: Dyspnea type: shortness of breath Qualified Code(s): R06.02 - Shortness of breath; R06.00 - Dyspnea, unspecified; R06.01 - Orthopnea Internal Medicine - H&P: HPI Chief complaint: shortness of breath Admitted From: Intrahospital Transfer Plans for Post Hospital Care: Hospice - Home History of present illness: Mr. Marin is a 86 year old male Mr. Marin is a 86 year old male presents withhortness of breath for 3 months this has been more noticeable for last 2 weeks, with increasingexercise intolerance increasing oxygen useincreasing shortness of breath. The patient was admitted ancongestive heart failure as well gross hematuia and a GI bleed. the patient has chronic kidney failure now iwith acute on chronic kidney failur He does not wish to have dialysis. The patient also has respiratory failure for which he is BiPAP dependent. Family has decided not to work up a GI bleed,and not toave any dialysis. They would like to withdraw the BiPAP, and for that reason palliative was consulted. The patient is in no stress at this time. He is non-verbal. pleasesee the assessment and plan. 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 Brand cyst, nephrolithiasis, hypertension) Psychiatric history: no psych history - Past Surgical History Surgical History: orthopedic, other, other (Thoracentesis in August 192016 removing 1250 mL from the right lung, lithotripsy, carpal tunnel syndrome surgery, TURP, cataracts, Mohs surgery due to BCC) - Social History Smoking Status: Never smoker Smokeless Tobacco Status: No Alcohol use: none Drug use: none - Family History Daughter Adopted: No Living Status: Still Living Father Family Member Ethnicity: Non- Living Status: Hx Family Cardiac Disorders: Yes Internal Medicine - H&P: Meds Allopurinol [Zyloprim 300 MG] 300 mg PO DAILY 01/21/16 [History] Aspirin 81 mg PO DAILY 01/21/16 [History] Insulin Glargine [Lantus] 0 - 10 units SQ HS 01/21/16 [History] Warfarin [Coumadin] 5 mg PO MOWEFR 01/21/16 [History] cloNIDine HCl [CloNIDine HCl] 0.1 mg PO BID PRN 01/21/16 [History] Carvedilol [Coreg] 6.25 mg PO BID 08/19/17 [History] Insulin LISPRO [Humalog Kwikpen U-100] 0 unit SQ TIDAC PRN 09/03/17 [History] Lisinopril [Zestril] 40 mg PO DAILY 09/03/17 [History] Oxygen 2.5 l NS AD 09/03/17 [History] Warfarin [Coumadin] 2.5 mg PO SUTUTHSA 09/03/17 [History] 3 Allergy/AdvReac Type Severity Reaction Status Date / Time metoprolol [From Toprol XL] Allergy Difficulty Verified 08/19/17 12:50 Breathing morphine Allergy Difficulty Verified 08/19/17 12:50 Breathing ROS unobtainable: due to mental status Palliative Care-Exam - Constitutional General appearance: Present: no acute distress - Head Head Exam: Present: atraumatic, normal inspection - Eye Eye exam: Present: normal appearance - Respiratory Respiratory exam: Present: decreased breath sounds - Cardiovascular Cardiovascular exam: Present: irregular rhythm - GI/Abdominal Exam GI/Abdominal exam: Present: normal bowel sounds, soft. Absent: tenderness - Catheter Type: Urethral (Garcia) - Extremities Exam Extremities exam: Present: pedal edema. Absent: normal inspection, tenderness - Neurological Exam Neurological exam: Present: altered. Absent: alert - Psychiatric Psychiatric exam: Absent: agitated, anxious - Skin Skin exam: Present: dry, warm Palliative Quality Palliative Quality: Screen for Code Status: Yes, Screen for Goals of Care: Yes, Screen for Pain: Yes, If Pain Regimen Started, Initiate Bowel Regimen: Yes, Screen for Nausea/Vomitting: Yes Code Status: 09/08/17 12:12 Resuscitation Status: Active [RES] Stat Resuscitation Status: DNR-Comfort Care Comment:
--- NOTE | 2017-09-08 12:59 | Event Note ---
Date of Encounter: 09/08/17 Time of Encounter: 12:55 Hospice medical doctor md certification of terminal illness: Hospice benefit. Start:09/08/2017 Hospice benefit. In: +90 days Palliative performance scale:20-30% History: patient with respiratory failure requiring BiPAP. BiPAP will be withdrawn, the patient also has renal failure with creatinine clearance less than 15 and diabetes the patient has decided against dialysis.he patient's hypercapnic hypoxemic respiratory failuren addition to his renal failure for which neither will Will be treated,causes me to believe that These findings support a life expectancy of 6 months or less. I attest that I have compose the above narrative based on my review of the patient's medical records, and or on my examination of the patient. Bismark Vázquez M.D. Associate medical planner. [facility]
[2017-09-08 16:00] VITALS: BP 121/55
[2017-09-08] MEDS ORDERED: Bisacodyl 10 MG RECTAL SUPPOSITORY RC SCH (21:00)
--- NOTE | 2017-09-09 11:16 | Death Note ---
Discharge Sum: Summary - Date and Time Date of admission: 09/08/17 13:19 Date of : 09/08/17 Time of : 19:37 - Summary Details: The patient came into the general inpatient hospice service for end-of-life care. His shortness of breath respiratory failure. BiPAP was withdrawn around teen 100 hours and the patient passed at 1937 hrs. As the patient was comfortable. Time of 1937 is already noted. Cause of is respiratory failure secondary to congestive heart failure. Into this was a GI bleed and end-stage renal disease. Comorbidities diabetes, hypertension, obstructive sleep apnea. he was never a smoker. - Additional Data Confirmation of as documented by pronouncing clinician: no pulse, no respirations, no heart sounds Family: at bedside Attending/PCP notified?: Yes Attending physician: Bismark Vázquez MD Was code activated?: No Autopsy requested?: No loan examiner notified?: No Organ bank notified?: Yes Advance directives: Yes Hospice patient?: Yes Discharge Sum: Diag - PCOD Probable Cause of : Respiratory arrest Discharge Sum: Prov - Provider Consults: 09/08/17 12:12 Consult to Palliative Care [CONS] Routine Comment: Consulting Provider: Palliative Care [place] Reason for Consult: coverage Time Notified: 12:18 Call Completed: Yes
== END 2017-09-08 19:40 | disposition expired | DRG 189 ==
LOC: 2ANU 13:19
PROVIDERS: ADMIT Family Medicine Hospice and Palliative Medicine; ATTEND Family Medicine Hospice and Palliative Medicine